=== PATIENT | female | born 1965 | race Caucasian/White ===

== ENCOUNTER → 2016-06-22 | Outpatient (CLI) | payer OTHER ==
[~2016-06-22] MED LIST: CELE200C PO; CETI10CA PO; CICL6.1H2 IH; DICY20TA30 PO; DULO60CA6 PO; FURO-69 PO; HYDR200T PO; HYDR4TAB PO; METH5TAB4 PO; ONDA4TAB7 PO; OXYM20TA10 PO; PRED-220 PO; PRED5SOL PO; VIT B COMPLEX; Vit D; XOPENEX1.25 MG/3 IH; [UNRECOGNIZED DRUG - OTHER]
--- NOTE | 2016-06-22 23:39 | PAIN ---
DATE OF SERVICE: 06/22/2016 DIAGNOSES: 1. Lumbar radiculopathy with lumbar degenerative disk disease and spondylosis. 2. Right hip joint pain. HISTORY OF PRESENT ILLNESS: The patient is a 51-year-old female who returns for followup status post previous caudal epidural steroid injections and medication management with both Opana and hydromorphone. The patient reports she is doing fairly well with these. She has not been using as much of hydromorphone in recent months. She is trying to be very sparingly with these as far as use goes, but the Opana she is taking fairly consistently every 12 hours with good results with the medications without significant side effects. The patient reports about 50% improvement with medications alone without significant side effects once again. The patient reports pain in low back and left lower extremity, increasing in intensity, dull alternating with sharp and aching pain in the low back radiating to the posterior gluteus, posterior thighs, lateral thigh, posterior lower leg into the ankle and foot with a radiating quality with significant pain with walking, standing, change in positions, has been waking her up from sleep recently not every night, but about 3 to 4 times a week, does keep her up at night with pain radiating into the leg as described. The patient reports it is 7 on a scale of 10, it is worse again worse with standing, walking, changing positions or lying down. No significant symptoms on the right side, but no significant motor loss, but the leg is becoming more weak with activity and fatigued more easily. 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 The patient reports these helped to some extent, but if not, then decreasing the pain significantly and again it is increasing with time. Her last injection was in December 2015. She did very well after this with approximately a 75% improvement, but the pain is returning now slowly and again becoming much more problematic with radiation to the left leg. PHYSICAL EXAMINATION: VITAL SIGNS: The patient's blood pressure 124/76, pulse 57, respirations 18, temperature 98.5 degrees Fahrenheit, height is 5 feet 5 inches, weight is 209 pounds. GENERAL: The patient is awake, alert, oriented, appropriate, very pleasant demeanor. HEENT: Head shows normocephalic, atraumatic. Extraocular movements are intact and symmetrical. Oral cavity shows mucous membranes moist and pink. Dentition is intact. NECK: Shows anterior throat supple without palpable lymphadenopathy noted. Swallow reflex is symmetrical. Neck shows full rotational motion of cervical spine with some minor tenderness with extension, but not with forward flexion. Right and left lateral rotation, slightly guarded, but complete past 45 degrees right and left. CHEST: Shows normal on inspection. Breath sounds are clear to auscultation bilaterally. HEART: Shows S1 and S2 clear. ABDOMEN: Soft, nontender, nondistended. No palpable organomegaly is noted. No rebound or guarding demonstrated. BACK: Shows spine grossly midline. Well-healed surgical scar is noted in the lumbar distribution. is symmetrical in appearance palpation is very firm, very tender with palpation throughout the upper, middle, lower distribution of paraspinous muscles in the lumbar distribution diffusely tender, very firm, but with normal for muscle girth without significant radiation, but significant tenderness mostly in the lower lumbar distribution. No tenderness over the sacrum or sacroiliac regions. The patient shows good rotation and motion of the lumbar spine, both laterally as well as extension and flexion with some minor pain reported with extension, but not flexion. EXTREMITIES: Lower extremities showed deep tendon reflexes 1+ in the patellar and tendo calcaneus tendons. Motor exam is approximately 3 on a scale 5 with left ankle flexion and extension and 4/5 on the right quadriceps and hamstring flexion 4/5 on the left and 5/5 on the right with quadriceps and hamstring flexion. Straight leg raise noted to be positive on the left side about 40-45 degrees with significant pain radiating rating the posterior gluteus, posterior thigh, posterior lower leg, which has decreased but not relieved with knee flexion. Right side is negative. Options were discussed with the patient. The patient's old chart was reviewed as her current medication regimen updated. Current review of systems updated today as well. We will preauthorize the patient for a caudal epidural steroid injection as she did very well with this in the past, again with returning in radicular pain in the left lower extremity and no longer be well controlled with home physical therapy and stretching, strengthening exercises. Also, refill patient's Opana 20 mg q.12 h. and patient was given instruction as well as side effects to be aware of, will follow up for a caudal epidural steroid injection as scheduled. THEODORE SORIANO MD DR: CAMPBELL/rony JOB#: [id number] / [id number]
== END | disposition home or self-care (01) ==
LOC: PNCL 10:12
PROVIDERS: ATTEND Anesthesiology
DX: M51.16 Intervertebral disc disorders with radiculopathy, lumbar region (principal); M47.896 Other spondylosis, lumbar region; M25.551 Pain in right hip
CPT/HCPCS: 99212

== ENCOUNTER → 2016-07-25 | Outpatient (CLI) | payer OTHER ==
[~2016-07-25] MED LIST changes: +IOHEXOL 180 MG/ML 10 ML VIAL. ONE; +methylPREDNISolone ACETATE 40 MG/ML VIAL. ONE; +methylPREDNISolone ACETATE 80 MG/ML VIAL. ONE
--- NOTE | 2016-07-26 01:26 | PAIN ---
DATE OF SERVICE: 07/25/2016 DIAGNOSES: 1. Lumbar radiculopathy, lumbar degenerative disk disease with lumbar spondylosis. 2. Right hip joint pain. HISTORY OF PRESENT ILLNESS: The patient is a 51-year-old female who returns for follow status post caudal epidural steroid injections and medication management with both Opana and hydromorphone for breakthrough pain. The patient reports she has been doing fairly well with this, although she does have increased pain in her low back and left lower extremity over the last few months. The patient is having increased pain with walking, standing, also some plantar fasciitis, which has been increasing and is contemplating him in surgery with her orthopedist regarding this as well. The patient reports the pain is 8 on a scale of 10, across the low back in the left lower extremity, mostly in the posterior gluteus, posterior thigh, posterior lateral calf, worse in the tail bone region, also difficulty sitting and she is using a donut to sit on recently because of the soreness and increased pain in the tail bone itself. The patient reports no new motor or sensory deficits. No new bowel or bladder incontinence or other complaints. PHYSICAL EXAMINATION: VITAL SIGNS: Blood pressure 115/66, pulse 73, respirations are 18, temperature 98.4 degrees Fahrenheit. Height is 5 feet 5 inches, weight is 212 pounds. General: The patient is awake, alert, oriented, appropriate, very pleasant demeanor. HEENT: Head shows normocephalic, atraumatic. Extraocular movements are intact and symmetrical. Oral cavity shows mucous membranes moist and pink. Dentition is intact. NECK: Shows anterior throat supple without palpable lymphadenopathy noted. Swallow reflex is symmetrical. Neck shows full rotation and motion of the cervical spine without difficulties and minor tenderness with extension, but not with forward flexion, right and left lateral rotation, greater than 45 degrees is intact without difficulty. CHEST: Shows normal on inspection. Breath sounds are clear to auscultation bilaterally. HEART: Shows S1 and S2 clear. No murmurs are auscultated. ABDOMEN: Obese, soft, nontender, nondistended. No palpable organomegaly is noted. No rebound or guarding demonstrated. BACK: Shows spine grossly midline. Inspection of the lumbar paraspinal musculature appears symmetrical without evidence of atrophy or hypertrophy with palpation, shows some moderate tenderness with palpation throughout the middle and lower distribution of the paraspinal muscles diffusely without atrophy, without hypertrophy, without trigger points or radiation of pain. No tenderness over the sacrum or sacroiliac regions. EXTREMITIES: The patient's lower extremities show deep tendon reflexes at 1+ in the patella and tendo calcaneus tendons. Motor exam remains approximately 3 to 4 on a scale of 5 with left ankle and 4/5 on the right, quadriceps and hamstring flexion 4/5 on the left and 5/5 on the right as well. PLAN: Options were discussed with the patient at this time. The patient's old chart was reviewed as her current medication regimen and updated. Current review of systems updated today as well. We will proceed with a caudal approach epidural steroid injection today with fluoroscopic guidance. Risks were again discussed including, but not limited to bleeding, infection, possibility of epidural hematoma, subsequent neurologic compromise, dural punctures, headaches, spinal cord and/or nerve damage, side effects of steroid medication and poor results regarding pain control. The patient understands and wishes to proceed. The patient will return to clinic in approximately 2 weeks for followup, was counseled as to return appointment and activity level and side effects to be aware of. DIAGNOSES: Lumbar radiculopathy with lumbar degenerative disk disease with lumbar spondylosis. PROCEDURE: Caudal approach epidural steroid injection using C-arm fluoroscopic guidance under sterile prep and drape with 22-gauge stylet Quincke needle. MEDICATIONS INJECTED: Depo-Medrol 120 mg plus 10 mL of preservative-free normal saline and 2 mL of Isovue contrast. CONDITION AT DISCHARGE: Stable. The patient tolerated procedure well, had no complications. THEODORE SORIANO MD DR: CAMPBELL/rony JOB#: [id number] / [id number]
== END | disposition home or self-care (01) ==
LOC: PNCL 10:33
PROVIDERS: ATTEND Anesthesiology
DX: M51.16 Intervertebral disc disorders with radiculopathy, lumbar region (principal); M47.26 Other spondylosis with radiculopathy, lumbar region
CPT/HCPCS: 62323; J1030; J1040

== ENCOUNTER → 2016-11-03 | Outpatient (CLI) | payer OTHER ==
[~2016-11-03] MED LIST changes: -IOHEXOL 180 MG/ML 10 ML VIAL. ONE; -OXYM20TA10 PO; +OXYM20TA17 PO; -methylPREDNISolone ACETATE 40 MG/ML VIAL. ONE; -methylPREDNISolone ACETATE 80 MG/ML VIAL. ONE
--- NOTE | 2016-11-04 05:27 | PAIN ---
DATE OF SERVICE: 11/03/2016 DIAGNOSES: 1. Lumbar radiculopathy with lumbar degenerative disk disease and lumbar spondylosis. 2. Right hip joint pain. HISTORY OF PRESENT ILLNESS: A 51-year-old female who returns for followup status post medication management with both Opana extended release and hydromorphone. The patient has done very well with this, about 50% improvement overall. The patient reports recent foot surgery with very good results. She has been able to walk much more comfortably and quite pleased with this. She is also having some significant pain, however, in the low back and left leg in a radicular fashion, which she has previously, rates it 9 on a scale of 10 at its worst, currently 2 on a scale 10 today, worst with standing and walking. She has a new physician with her physical therapy group where she is able to do more supervision without more physical activity, which has been more ____ as well with decreasing her pain. The patient reports there is still some aching, sharp, dull pain, shooting, cramping, tingling and stabbing. It can be constant, radiating mostly with weightbearing, standing and walking. The patient reports no new motor or sensory deficits. The patient reports she is only sleeping a few hours a night at this time. She has to reposition and change positions, get out of bed, take pain medication during the night to get any restful sleep. The patient reports no new motor or sensory deficits, no new bowel or bladder incontinence or other complaints. PHYSICAL EXAMINATION: VITAL SIGNS: The patient's blood pressure is 145/77, pulse 76, respirations are 18, temperature 98.2 degrees Fahrenheit, height is 5 feet 5 inches, weight is 221 pounds. GENERAL: The patient is awake, alert, oriented, appropriate, very pleasant demeanor. HEENT: Head shows normocephalic, atraumatic. Extraocular movements are intact, symmetrical. Oral cavity, mucous membranes are moist and pink. Dentition is intact. NECK: Shows anterior throat supple without palpable lymphadenopathy noted. Swallow reflex is symmetrical. CHEST: Shows normal on inspection. Breath sounds clear to auscultation bilaterally. HEART: Shows S1 and S2 clear. ABDOMEN: Soft, obese, nontender, nondistended. No palpable organomegaly is noted. BACK: Shows spine grossly midline. Lumbar paraspinous muscle shows some mild tenderness with palpation diffusely bilaterally in the middle and lower distribution of paraspinous muscles, but without radiation. The patient has good rotational motion both laterally as well as extension and flexion without difficulty. EXTREMITIES: The patient's lower extremities showed deep tendon reflexes 1+ in the patellar and tendo calcaneus tendons. Motor exam is approximately 4 on a scale of 5 with left dorsiflexion, extension and 5/5 on the right. Options were discussed with the patient. We will refill the patient's Opana extended release as well as hydromorphone with instructions side effects to be aware of discussed with each of these, also discussed increased activity as tolerated and nutritional diet concerns for weight loss. The patient will return to clinic in approximately 2-3 weeks, will call to schedule for her second caudal epidural steroid injection. We will plan on that on her next visit. THEODORE SORIANO MD DR: CAMPBELL/rony JOB#: [id number] / [id number]
== END | disposition home or self-care (01) ==
LOC: PNCL 14:14
PROVIDERS: ATTEND Anesthesiology
DX: M51.16 Intervertebral disc disorders with radiculopathy, lumbar region (principal); M47.896 Other spondylosis, lumbar region; M25.551 Pain in right hip
CPT/HCPCS: 99212

== ENCOUNTER → 2016-12-08 | Outpatient (CLI) | payer OTHER ==
[~2016-12-08] MED LIST changes: +IOHEXOL 180 MG/ML 10 ML VIAL. ONE; +METO25TA4 PO; +methylPREDNISolone ACETATE 40 MG/ML VIAL. ONE; +methylPREDNISolone ACETATE 80 MG/ML VIAL. ONE
== END | disposition home or self-care (01) ==
LOC: PNCL 08:58
PROVIDERS: ATTEND Anesthesiology
DX: M51.16 Intervertebral disc disorders with radiculopathy, lumbar region (principal); M47.26 Other spondylosis with radiculopathy, lumbar region; Z88.1 Allergy status to other antibiotic agents; Z88.8 Allergy status to other drugs, medicaments and biological substances
CPT/HCPCS: 62323; J1030; J1040

== ENCOUNTER → 2017-01-02 | Outpatient (CLI) | payer OTHER ==
[~2017-01-02] MED LIST changes: -IOHEXOL 180 MG/ML 10 ML VIAL. ONE; -methylPREDNISolone ACETATE 40 MG/ML VIAL. ONE; -methylPREDNISolone ACETATE 80 MG/ML VIAL. ONE
--- NOTE | 2017-01-02 23:38 | PAIN ---
DATE OF SERVICE: 01/02/2017 PROGRESS NOTE FOR PAIN CLINIC DIAGNOSES: Lumbar radiculopathy with lumbar degenerative disk disease and lumbar spondylosis. HISTORY OF PRESENT ILLNESS: The patient is a 51-year-old female who returns for followup status post caudal epidural steroid injection x 1. The patient reports about 50-60% improvement after the last injection in the low back and left lower extremity pain. The patient reports the pain is returning now. 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 She is doing fairly well with this. The patient reports sporadically she will awaken from sleep at night and she repositions. She takes her pain medication and gets out of the bed and then changes positions. She is able to get back to sleep. She is getting about 4 to 5 hours of sleep at a time most times. The patient reports that she has been doing much better. Her last injection was 10/08/2014. For the past 2 weeks there has been about 50-60% improvement starting to build up now again with radiation into the left lower extremity in L4-L5 and L5-S1 dermatome, in the anterior thigh, medial thigh, lower thigh posteriorly as well as the posterior upper thigh and posterior calf on the left side only. The patient also reports of pain in the mid upper back with increased activity as well. The patient rates it as a 10 on a scale of 10 at its worse, currently is 7 on a scale of 10 today. She describes it as aching, dull, tight, shooting, tingling with burning and sometimes constant pain in the back and radiating pain into the left leg is noted. PHYSICAL EXAMINATION: VITAL SIGNS: Today, the patient's blood pressure 114/74, pulse 81, respirations are 20, temperature is 98.6 degrees Fahrenheit, height is 5 feet 5 inches, weighs 216 pounds. GENERAL: The patient is awake, alert, oriented, appropriate, very pleasant demeanor. HEENT: Head shows normocephalic, atraumatic. Extraocular movements are intact and symmetrical. Oral cavity: Mucous membranes moist and pink. Dentition is intact. NECK: Shows anterior throat supple without palpable lymphadenopathy noted. Swallow reflex is symmetrical. CHEST: Shows normal on inspection. Breath sounds clear to auscultation bilaterally. HEART: Shows S1 and S2 clear. ABDOMEN: Soft, nontender, nondistended. No palpable organomegaly, no rebound or guarding demonstrated. BACK: Shows spine grossly midline. Normal-appearing cervical lordotic curvature, thoracic kyphotic curvature, some mild flattening of lumbar lordotic curvature. Lumbar paraspinous muscle shows symmetrical inspection, shows palpation tenderness throughout the upper, middle and lower distribution of paraspinous musculature diffusely. The patient shows good rotational motion; however, both laterally as well as extension and flexion of lumbar spine without difficulty. LOWER EXTREMITIES: Showed deep tendon reflexes at 1+ in the patellar and tendocalcaneus tendons are equal. Motor exam is approximately 4 on a scale of 5 with dorsiflexion, extension, quadriceps and hamstring flexion, but is symmetrical and equal. Peripheral pulses are 1+ in the bilateral posterior tibial and dorsalis pedis pulses. No peripheral edema is noted in the lower extremities. The patient shows positive straight leg raise on the left only about 40-45 degrees, decreased with knee flexion and completely relieved with knee flexion, right side is negative. Gaenslen's and Juan Luis's maneuvers are negative bilaterally. Options were discussed with the patient and the patient's old chart was reviewed as her current medication regimen updated. Current review of systems updated today as well. We will prescribe Opana at 20 mg extended release. We did discuss the possibility of this being discontinued in the near future and we will find at alternative at that time. The patient is amenable to this as well. We will have the patient prearthritis for a second caudal approach epidural steroid injections. She did very well with the first one with now some pain reported in a radicular fashion in the left leg at the L4-L5 and L5-S1 dermatomes as noted. The patient will continue to increase her activity as tolerated, was counseled as to the importance of maintaining activity and she will follow up for a second caudal epidural steroid injection as scheduled and she was given instructions as well as side effects to be aware with the Opana medication prescription. THEODORE SORIANO MD DR: CAMPBELL/rony JOB#: [id number] / [id number]
== END | disposition home or self-care (01) ==
LOC: PNCL 13:28
PROVIDERS: ATTEND Anesthesiology
DX: M54.16 Radiculopathy, lumbar region (principal); M51.36 Other intervertebral disc degeneration, lumbar region; M47.896 Other spondylosis, lumbar region
CPT/HCPCS: 99212

== ENCOUNTER → 2017-01-17 | Outpatient (CLI) | payer OTHER ==
[~2017-01-17] MED LIST changes: +IOHEXOL 180 MG/ML 10 ML VIAL. ONE; +methylPREDNISolone ACETATE 40 MG/ML VIAL. ONE; +methylPREDNISolone ACETATE 80 MG/ML VIAL. ONE
--- NOTE | 2017-01-17 16:45 | PAIN ---
DATE OF SERVICE: 01/17/2017 PROGRESS NOTE FOR PAIN CLINIC DIAGNOSIS: Lumbar radiculopathy with lumbar degenerative disk disease and lumbar spondylosis. HISTORY OF PRESENT ILLNESS: The patient is a 52-year-old female who returns for followup status post previous caudal epidural steroid injections as well as medication management. The patient had been doing fairly well, but the pain is returning and increasing in the low back and into the left lower extremity primarily, also in the right lower extremity but also in the low back, significant pain with motion and changing positions, walking and standing, awakens her from sleep occasionally but not every night. The patient reports the pain as a 9 on a scale of 10 at its worst and 1 at its least. It is currently a 5 on a scale of 10, which is its average. The patient reports the pain in the low back and leg as aching, dull, tingling, burning, cramping, severe, constant and radiating, and it is flared up today as she has been doing some increased activity over the weekend, and we had some rainy weather last night, which has flared it up as well. The patient reports no new motor or sensory deficits, no new bowel or bladder incontinence or other complaints. PHYSICAL EXAMINATION: VITAL SIGNS: Today, the patient's blood pressure 112/71, pulse 68, respirations 18, temperature is 98.2 degrees Fahrenheit. Height is 5 feet 5 inches. Weight is 218 pounds. GENERAL: The patient is awake, alert, oriented, appropriate, very pleasant demeanor. HEENT: Head shows normocephalic and atraumatic. Extraocular movements are intact and symmetrical. Oral cavity: Mucous membranes are moist and pink. Dentition is intact. NECK: Shows anterior throat supple without palpable lymphadenopathy noted. Swallow reflex is symmetrical. CHEST: Shows normal on inspection. Breath sounds are clear to auscultation bilaterally. HEART: Shows S1 and S2 clear. ABDOMEN: Soft, nontender, nondistended. No rebound or guarding demonstrated. BACK: Shows spine grossly midline. Slight exaggeration of thoracic kyphosis and mild flattening of lumbar lordotic curvature. Lumbar paraspinous muscle shows some moderate tenderness with palpation diffusely throughout the upper, middle and lower distribution to a moderate extent but without significant radiation. No tenderness over the sacrum or sacroiliac regions. Lower extremities show deep tendon reflexes 1+ in the patellar and tendo calcaneus tendons. Motor exam is approximately 4 on a scale of 5 but equal and symmetrical with dorsiflexion, extension, quadriceps and hamstring flexion. Options were discussed with the patient. The patient's old chart was reviewed, and her current medication regimen was updated. Current review of systems was updated today as well. We will proceed with a caudal epidural steroid injection #2 in this series. Risks were again discussed including but not limited to bleeding, infection, possibility of epidural hematoma, subsequent neurological compromise, dural puncture, headaches, spinal cord and/or nerve damage, side effects of steroid medication and poor results regarding pain control. The patient understands and wishes to proceed. The patient will return to clinic in approximately 2 weeks for followup and was counseled on return appointment, activity level and side effects to be aware of. DIAGNOSIS: Lumbar radiculopathy with lumbar degenerative disk disease and lumbar spondylosis. PROCEDURE: Caudal approach epidural steroid injection using C-arm fluoroscopic guidance under sterile prep and drape using local anesthetic. MEDICATIONS INJECTED: Total of 120 mg of Depo-Medrol plus 10 mL of preservative-free normal saline and 2 mL of Isovue for contrast. CONDITION AT DISCHARGE: Stable. The patient tolerated the procedure well and had no complications. THEODORE SORIANO MD DR: CAMPBELL/rony JOB#: [id number] / [id number]
== END | disposition home or self-care (01) ==
LOC: PNCL 10:22
PROVIDERS: ATTEND Anesthesiology
DX: M51.16 Intervertebral disc disorders with radiculopathy, lumbar region (principal); M47.26 Other spondylosis with radiculopathy, lumbar region; Z88.8 Allergy status to other drugs, medicaments and biological substances
CPT/HCPCS: 62323; J1030; J1040

== ENCOUNTER → 2017-01-31 | Outpatient (CLI) | payer OTHER ==
[~2017-01-31] MED LIST changes: -IOHEXOL 180 MG/ML 10 ML VIAL. ONE; -methylPREDNISolone ACETATE 40 MG/ML VIAL. ONE; -methylPREDNISolone ACETATE 80 MG/ML VIAL. ONE
--- NOTE | 2017-01-31 12:46 | PAIN ---
DATE OF SERVICE: 01/31/2017 DIAGNOSES: 1. Lumbar radiculopathy with lumbar degenerative disk disease, lumbar spondylosis. 2. Right hip joint pain. HISTORY OF PRESENT ILLNESS: Ms. Wiseman is a 52-year-old female who returns for followup, status post caudal epidural steroid injection on 01/17/2017. The patient reports she has done very well for the past 2 weeks, initially about 100% improvement in the low back and left lower extremity pain. The pain is beginning to return now, but only to about a 75% to 80% of what it was originally. The patient reports still 75% to 80% improvement that is in the left lower leg and back. The patient reports, it is a 6 on a scale of 10 on an average. It is at 2 on a scale of 10 today, and 9 at its worst. Aching, sharp, shooting, cramping, tingling. Radiating into the left leg, low back; becoming more severe, on and off in intensity, but not constant like it was. The patient reports it is increased with walking. She blames this on the way her foot is used when she walks, and she had several surgeries on her foot, on the left side. The patient reports it is doing better at night. Does not awaken her as often, but has awaken her maybe twice since her last visit, when it was every night. The patient reports it is still radiating in the L5-S1 and L4-L5 distribution in the left lower extremity. The patient reports no new motor or sensory deficits, no new bowel or bladder incontinence or other complaints. She is very pleased with her progress again, significantly improved, 100% initially and then about 75% to 80% over the past 2 weeks and still doing better. The patient reports it is beginning to become more noticeable as time goes on, but has been very good for the last 2 weeks as well. PHYSICAL EXAMINATION: VITAL SIGNS: Today, blood pressure 122/77, pulse 72, respirations are 18, temperature 98.6 degrees Fahrenheit, height is 5 feet 5 inches, weighs 221 pounds. GENERAL: The patient is awake, alert, oriented, appropriate, very pleasant demeanor. HEENT: Head shows normocephalic, atraumatic. Extraocular movements are intact and symmetrical. Oral mucosa is moist and pink. Dentition intact. NECK: Shows anterior throat supple. CHEST: Shows normal on inspection. Breath sounds clear to auscultation bilaterally. HEART: Shows S1 and S2 clear. No murmurs auscultated. ABDOMEN: Obese, soft, nontender, nondistended. MUSCULOSKELETAL: Back shows spine grossly in the midline. Normal appearing thoracic kyphosis. Some slight flattening of lumbar lordotic curvature. Lumbar paraspinous musculature shows symmetrical on inspection. Palpation shows some moderate tenderness, only diffusely in the lower lumbar distribution, bilaterally without radiation. No tenderness over the sacrum or sacroiliac regions. The patient shows good rotational motion of the lumbar spine, both laterally as well as extension and flexion. EXTREMITIES: Lower extremities showed deep tendon reflexes 1+ in the patellar and tendo calcaneus tendons. Motor exam is approximately 4 on a scale of 5, but equal and symmetrical with dorsiflexion, extension, quadriceps and hamstring flexion. Peripheral pulses are 1+ posterior tibial bilaterally. No peripheral edema is noted. The patient still has a very mild straight leg raise, positive on the left at about 45 degrees which is relieved with knee flexion. Right side is negative. The patient is able to stand. It is difficult to turn and stand on her toes, as she has difficulty with her feet, moving in this configuration. Is walking with a slight limp. Appears to favor her left lower extremity. Not using any assistive devices currently to ambulate. IMPRESSION: Options were discussed with the patient. The patient's old chart was reviewed, as her current medication regimen updated. Current review of systems updated today as well. We will preauthorize the patient for a second caudal approach epidural steroid injection. The patient will return to clinic once authorization is approved and we will plan on caudal epidural steroid injection at that time. THEOODRE SORIANO MD DR: CAMPBELL/rony JOB#: [id number] / [id number]
== END | disposition home or self-care (01) ==
LOC: PNCL 10:24
PROVIDERS: ATTEND Anesthesiology
DX: M51.16 Intervertebral disc disorders with radiculopathy, lumbar region (principal); M47.896 Other spondylosis, lumbar region; M25.551 Pain in right hip
CPT/HCPCS: 99212

== ENCOUNTER → 2017-03-24 | Outpatient (CLI) | payer OTHER ==
--- NOTE | 2017-03-24 12:55 | PAIN ---
DATE OF SERVICE: 03/24/2017 DIAGNOSES: 1. Lumbar radiculopathy with lumbar degenerative disk disease, lumbar spondylosis. 2. Right hip joint pain. HISTORY OF PRESENT ILLNESS: The patient is a 52-year-old female who returns for followup status post both caudal epidural steroid injections as well as medication management with Opana and hydrocodone for breakthrough. The patient reports doing well with this; however, Opana has been taken off the market, and we discussed some alternatives. We will try some different alternatives today. The patient reports still pain is significant in the low back, left lower extremity with significant radiation, mostly in the right lower extremity, much worse with walking upstairs, climbing stairs, also just standard walking and changing positions. The patient reports no new motor or sensory deficits, no new bowel or bladder incontinence or other complaints, but the pain is beginning to be much worse and some weakness in the lower extremities as well. The patient reports as a 9 on a scale of 10 at its worse, a 7 on average and a 6 at its least and a 6 today. The patient reports tingling, stabbing, aching, shooting, radiating constant pain in the leg and it is becoming more severe and unbearable in the left leg. The patient reports no complete loss of function, but significant weakness and fatigability in the legs with ambulation. The patient reports she has been waking from sleep about every 3-4 hours secondary to pain in low back and left leg. She has to get out of bed, take pain medications and reposition to get back to sleep. The patient reports no new motor or sensory deficits, but again significant increase in weakness in the lower extremities, especially on the left side and in the back with pain. PHYSICAL EXAMINATION: VITAL SIGNS: The patient's blood pressure is 131/81, pulse is 111, respirations 18, temperature 98.1 degrees Fahrenheit. Height is 5 feet 5 inches, weight is 216 pounds. GENERAL: The patient is awake, alert, oriented, appropriate, very pleasant demeanor. HEENT: Shows normocephalic, atraumatic. Extraocular movements are intact and symmetrical. Oral cavity shows mucous membranes moist and pink. Dentition is intact. NECK: Shows anterior throat supple without palpable lymphadenopathy noted. Swallow reflex is symmetrical. CHEST: Shows normal on inspection. Breath sounds are clear to auscultation bilaterally. HEART: Shows S1 and S2 clear. No murmurs auscultated. ABDOMEN: Soft, nontender, nondistended. No palpable organomegaly. No rebound or guarding demonstrated. BACK: The patient's back shows spine grossly in midline with a slight exaggeration of thoracic kyphosis and mild flattening of lumbar lordotic curvature. Lumbar paraspinous muscle shows symmetrical on inspection, but with palpation shows some moderate tenderness bilaterally diffusely without radiation. The patient shows good rotational motion with some minor tenderness with extension, but not with forward flexion. Right and left lateral rotations performed at 10 degrees from midline right and left without significant pain reported. No tenderness over the sacrum or sacroiliac regions or over the spinous processes. LOWER EXTREMITIES: Showed deep tendon reflexes 1+ in the patellar and tendo calcaneus tendons. Motor exam is approximately 4 on a scale of 5, but equal and symmetrical with dorsiflexion, extension, quadriceps and hamstring flexion. Peripheral pulses are 1+ posterior tibial. No peripheral edema is noted. Options were discussed with the patient and the patient's old chart was reviewed as her current medication regimen updated. Current review of systems updated today as well, and we will refill the patient's hydrocodone, but change the Opana as it is no longer available to new extended release oxycodone. Xtampza at 18 mg q.12 hours to be taken with food. The patient was given instruction as well as side effects to be aware with the medications and will follow up in the next week or two once this has been tried and for some feedback on how it is doing with the pain. The patient was cautioned as to side effects as well as constipation, dizziness, drowsiness, sleepiness, nausea, itching, etc. The patient understands and agrees and will follow up as scheduled. THEODORE SORIANO MD DR: CAMPBELL/rony JOB#: [id number] / [id number]
== END | disposition home or self-care (01) ==
LOC: PNCL 09:16
PROVIDERS: ATTEND Anesthesiology
DX: M51.16 Intervertebral disc disorders with radiculopathy, lumbar region (principal); M47.896 Other spondylosis, lumbar region; M25.551 Pain in right hip
CPT/HCPCS: 99212

== ENCOUNTER → 2017-04-19 | Outpatient (CLI) | payer OTHER ==
--- NOTE | 2017-04-19 17:03 | KCIC ---
MRI Lumbar Spine without contrast History: Lumbar radiculopathy, left radiculopathy, new right leg weakness Technique: Multiplanar, multi sequential noncontrast MR imaging was performed of the lumbar spine. Contrast: None Comparison: None Findings: Lumbar vertebral body stature is overall maintained. There is small inferior L3 Schmorl's node. There is advanced degenerative disc disease at L5-S1, moderate degenerative disc disease at L4-5, minimally at L3-4 and L2-3. There is degenerative endplate change L5-S1. There is minimal posterior subluxation L5 relative S1 and L4 relative to L5, negligible posterior subluxation L3 relative L4. There is straightening of the lumbar spine. Conus terminates at L1. L2-L3: This level was not included on the axial images. There is shallow posterior protrusion in the left lateral recess. Spinal canal and neural foramina are adequate. L3-L4: There is disc osteophyte complex. There is superimposed bulge as well as protrusion more eccentric to the right lateral recess. There is mild narrowing of the far right lateral recess. There is mild buckling of the ligamentum flavum. There is prominence of posterior epidural fat and mild facet degenerative change. Neural foramina are overall adequate. L4-L5: There is mild buckling of the ligamentum flavum. There is disc osteophyte complex, superimposed bulge/broad protrusion with indentation upon the ventral thecal sac greater in the left lateral recess. There is [id number] narrowing of the far left lateral recess with contact of the descending left L5 nerve root, minimal narrowing of the far right lateral recess. There is minimal narrowing of the left neural foramen, right neural foramen overall adequate. L5-S1: There is broad posterior protrusion, small extrusion extending above the intervertebral disc space eccentric to the left lateral recess. There is contact of the descending S1 nerve roots bilaterally greater on the left. There is moderate to severe left and mild right lateral recess stenosis. There is moderate to severe left and moderate right neural foramina compromise. Impression: 1. There is lateral recess stenosis as stated most notable left greater than right at L5-S1 and on the left at L4-5. There is contact of the descending S1 nerve roots at L5-S1 greater on the left. 2. There is degenerative disc disease at L5-S1 and to lesser degree L4-5, minimally at more superior levels. 3. There is neural foramina compromise as stated most notable bilaterally at L5-S1, left greater than right. 4. There is multilevel mild abnormal alignment as stated, multilevel facet degenerative change. Electronically signed by: Efraín Hines MD (04/19/2017 4:59 PM) [id number]
== END | disposition home or self-care (01) ==
LOC: KCIC MRI 16:22
PROVIDERS: ATTEND Anesthesiology
DX: M51.16 Intervertebral disc disorders with radiculopathy, lumbar region (principal); M47.896 Other spondylosis, lumbar region; Z88.2 Allergy status to sulfonamides; Z88.8 Allergy status to other drugs, medicaments and biological substances; Z91.041 Radiographic dye allergy status; Z88.5 Allergy status to narcotic agent
CPT/HCPCS: 72148

== ENCOUNTER → 2017-05-26 | Outpatient (CLI) | payer OTHER | END | disposition home or self-care (01) | LOC: KCIC MRI 08:32 | DX: M48.02 Spinal stenosis, cervical region (principal); M47.892 Other spondylosis, cervical region; M25.78 Osteophyte, vertebrae; R53.1 Weakness | CPT/HCPCS: 72141 ==

== ENCOUNTER → 2017-07-20 | Outpatient (CLI) | payer OTHER | END | disposition home or self-care (01) | LOC: PNCL 10:55 | DX: M51.16 Intervertebral disc disorders with radiculopathy, lumbar region (principal); M16.11 Unilateral primary osteoarthritis, right hip; M47.896 Other spondylosis, lumbar region | CPT/HCPCS: 99212 ==

== ENCOUNTER → 2017-08-03 | Outpatient (CLI) | payer OTHER | END | disposition home or self-care (01) | LOC: PNCL 10:48 | DX: M51.16 Intervertebral disc disorders with radiculopathy, lumbar region (principal); M47.896 Other spondylosis, lumbar region; M25.551 Pain in right hip; M79.672 Pain in left foot | CPT/HCPCS: 99212 ==

== ENCOUNTER → 2017-10-02 | Outpatient (CLI) | payer OTHER ==
[~2017-10-02] MED LIST changes: -CELE200C PO; -CETI10CA PO; -CICL6.1H2 IH; -DICY20TA30 PO; -DULO60CA6 PO; -FURO-69 PO; -HYDR200T PO; -HYDR4TAB PO; +IOHEXOL 180 MG/ML 10 ML VIAL.; -METH5TAB4 PO; -METO25TA4 PO; -ONDA4TAB7 PO; -OXYM20TA17 PO; -PRED-220 PO; -PRED5SOL PO; -VIT B COMPLEX; -Vit D; -XOPENEX1.25 MG/3 IH; -[UNRECOGNIZED DRUG - OTHER]; +methylPREDNISolone ACETATE 40 MG/ML VIAL.; +methylPREDNISolone ACETATE 80 MG/ML VIAL.
== END | disposition home or self-care (01) ==
LOC: PNCL 13:08
DX: M51.16 Intervertebral disc disorders with radiculopathy, lumbar region (principal); M47.26 Other spondylosis with radiculopathy, lumbar region; Z91.041 Radiographic dye allergy status; Z88.5 Allergy status to narcotic agent; Z88.8 Allergy status to other drugs, medicaments and biological substances
CPT/HCPCS: 62323; J1030; J1040; Q9965

== ENCOUNTER → 2017-12-22 | Outpatient (CLI) | payer OTHER | END | disposition home or self-care (01) | LOC: PNCL 10:33 | DX: M51.16 Intervertebral disc disorders with radiculopathy, lumbar region (principal); M47.896 Other spondylosis, lumbar region | CPT/HCPCS: 99212 ==

== ENCOUNTER → 2018-02-07 | Outpatient (CLI) | payer OTHER ==
[~2018-02-07] MED LIST changes: +ABAL1.56 SQ; +CELE200C PO; +CETI10CA PO; +CICL6.1H2 IH; +DICY20TA30 PO; +DULO60CA6 PO; +FLUT1DIS3 IH; +FURO-69 PO; +HYDR200T71 PO; +HYDR4TAB PO; -IOHEXOL 180 MG/ML 10 ML VIAL.; +METH5TAB4 PO; +METO25TA4 PO; +ONDA4TAB7 PO; +OXYC18CA PO; +OXYM20TA17 PO; +PRED-220 PO; +PRED5SOL PO; +VIT B COMPLEX; +Vit D; +XOPENEX1.25 MG/3 IH; +[UNRECOGNIZED DRUG - OTHER]; -methylPREDNISolone ACETATE 40 MG/ML VIAL.; -methylPREDNISolone ACETATE 80 MG/ML VIAL.
--- NOTE | 2018-02-07 18:25 | PAIN ---
DATE OF SERVICE: 02/07/2018 PROGRESS NOTE FOR PAIN CLINIC DIAGNOSES: 1. Lumbar radiculopathy with lumbar degenerative disk disease and lumbar spondylosis. 2. Right hip joint pain with primary osteoarthritis. HISTORY OF PRESENT ILLNESS: The patient is a 53-year-old female who returns for followup status post medication management postop with morphine sulfate extended release. The patient reports she is doing very well with the 30 mg tablets twice a day, also taking gabapentin 100 mg with higher dose we had suggested to take at night and it is causing some vivid nightmares. We backed this off to just 100 mg in the morning and the evening. She will try 200 mg in the morning starting after today's visit if she can tolerate the potential sedation side effects. The patient reports otherwise doing fairly well. Pain is returning, however in the low back into the left greater than right lower extremity, also in the posterior gluteus, posterior thigh, posterior calf on the left side and also in the posterior gluteus and thigh on the right. The patient reports it is worse with standing, walking and changing positions, extended standing or walking more than about 10-15 minutes, also sitting in the car for more than about 15-20 minutes. The patient reports it is aching, sharp, shooting, tingling, burning, cramping, stabbing, radiating, becoming more severe. Rates as a 7 on a scale of 10 at its worst, 5 on average, 3 at its least and is a 5 today. The patient reports no loss of motor function and does not awaken her from sleep at night generally. The patient reports no new bowel or bladder incontinence or other complaints. PHYSICAL EXAMINATION: VITAL SIGNS: The patient's blood pressure is 114/62, pulse 53, respirations are 18, temperature is 98.6 degrees Fahrenheit. Height is 5 feet 5 inches, weighs 210 pounds. GENERAL: The patient is awake, alert, oriented, appropriate, very pleasant demeanor. HEENT: Head shows normocephalic, atraumatic. Extraocular movements are intact and symmetrical. Oral cavity: Mucous membranes are moist and pink. Dentition is intact. NECK: Shows anterior throat supple, without palpable lymphadenopathy noted. Swallow reflex is symmetrical. CHEST: Shows normal on inspection. Breath sounds are clear to auscultation bilaterally. HEART: Shows S1, S2 clear. No murmurs auscultated. ABDOMEN: Soft, nontender, nondistended. No palpable organomegaly is noted. No rebound or guarding demonstrated. BACK: Shows spine grossly in the midline. Slight exaggerated thoracic kyphosis and some minor flattening of lumbar lordotic curvature. Lumbar paraspinous muscle shows symmetrical on inspection, on palpation shows some moderate tenderness throughout the upper, middle and lower distribution of the paraspinous muscles, slightly more on the left than the right, but symmetrical. The patient has good rotational motion of lumbar spine without difficulty, left and right as well as extension and flexion without significant pain. EXTREMITIES: Lower extremities shows deep tendon reflexes at 1+ in the patellar and tendo-calcaneus tendons. Motor exam is approximately 4 on a scale of 5, but equal and symmetrical with dorsiflexion, extension, quadriceps and hamstring flexion. The patient does have a positive straight leg raise on the left side at about 40-45 degrees. Right side is negative. Gaenslen's and Juan Luis's maneuvers are negative bilaterally. Peripheral pulses are 1+ posterior tibia. No peripheral edema is noted. Options were discussed with the patient. The patient's old chart was reviewed as her current medication regimen updated. Current review of systems updated today as well. We will preauthorize the patient for a caudal approach epidural steroid injection. She has done very well with these in the past, but returning radicular pain in an L5-S1 dermatomal distribution, more on the left than the right. The patient was given a refill for her MS Contin as well as Symproic with instructions and side effects to be aware of with each of the medications. The patient will follow up in approximately 2 weeks. We will plan on caudal approach epidural steroid injection at that time. 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 THEODORE SORIANO MD DR: CAMPBELL/rony JOB#: [id number] / [id number]
== END | disposition home or self-care (01) ==
LOC: PNCL 10:05
PROVIDERS: ATTEND Anesthesiology
DX: M51.16 Intervertebral disc disorders with radiculopathy, lumbar region (principal); M47.896 Other spondylosis, lumbar region; M16.11 Unilateral primary osteoarthritis, right hip; Z88.2 Allergy status to sulfonamides; Z88.1 Allergy status to other antibiotic agents; Z88.5 Allergy status to narcotic agent; Z88.8 Allergy status to other drugs, medicaments and biological substances
CPT/HCPCS: 99212

== ENCOUNTER → 2018-02-21 | Outpatient (CLI) | payer OTHER ==
[~2018-02-21] MED LIST changes: +IOHEXOL 180 MG/ML 10 ML VIAL. ONE; +LIDOCAINE 2% PF 2ML VIAL. ONE; +MORP30TA83 PO; +NALD0.2T PO; +methylPREDNISolone ACETATE 40 MG/ML VIAL. ONE; +methylPREDNISolone ACETATE 80 MG/ML VIAL. ONE
--- NOTE | 2018-02-21 19:14 | PAIN ---
DATE OF SERVICE: 02/21/2018 DIAGNOSES: Lumbar radiculopathy with lumbar degenerative disk disease and lumbar spondylosis. HISTORY OF PRESENT ILLNESS: The patient is a 53-year-old female who returns for followup status post caudal epidural steroid injection x 1 on 10/02/2017. The patient did very well, about 50% improvement, was doing quite well. She is also managed on the MS Contin and hydrocodone for breakthrough. The patient reports she is doing well with this and think she is on some Prozac, which is working very well for constipation. The patient reports her pain now is an 8 on a scale of 10 at its worst, 5 on average, 2 at its least and is a 5 today. The patient reports it is in the low back, left lower extremity, mostly in the posterior gluteus, posterior thigh and posterior calf, aching, sharp, dull, tingling, burning, cramping, radiating, becoming more severe with time. The patient reports it is waking her from sleep occasionally, but usually only about every 6-7 hours at night, does not cause any difficulty with bowel or bladder incontinence. The patient reports initially, she increased her distance walking, doing household activities with greater ease and comfort, traveling with greater ease and comfort, still using a hemorrhoid cushion to sit on in a car, which does decrease the pain in the tailbone and the low back. The patient reports no new motor or sensory deficits, no new bowel or bladder incontinence or other complaints. PHYSICAL EXAMINATION: VITAL SIGNS: The patient's blood pressure 130/50, pulse 59, respirations 16, temperature is 98.1 degrees Fahrenheit, weight is 219 pounds. GENERAL: The patient is awake, alert, oriented, appropriate, very pleasant demeanor. HEENT: Head shows normocephalic, atraumatic. Extraocular movements are intact, symmetrical. Oral cavity: Mucous membranes moist and pink. Dentition is intact. NECK: Shows anterior throat supple without palpable lymphadenopathy noted. Swallow reflex is symmetrical. CHEST: Shows normal with inspection. Breath sounds clear to auscultation bilaterally. HEART: Shows S1, S2 clear. No murmurs auscultated. ABDOMEN: Soft, nontender, nondistended. No palpable organomegaly is noted. No rebound or guarding demonstrated. BACK: Shows spine grossly in the midline. Normal appearing thoracic kyphosis. Some slight flattening of lumbar lordotic curvature. Lumbar paraspinous musculature shows symmetrical on inspection with palpation shows some moderate tenderness, but only diffusely in the low lumbar distribution bilaterally without radiation. EXTREMITIES: The patient's lower extremities show deep tendon reflexes 1+ in the patellar and tendo calcaneus tendons. Motor exam is approximately 4 on a scale of 5 and equal and symmetrical dorsiflexion and extension, quadriceps and hamstring flexion. Peripheral pulses are 1+ posterior tibial. No peripheral edema is noted bilaterally. Options were discussed with the patient. The patient's old chart was reviewed as her current medication regimen and updated. Current review of systems is updated today as well. We will proceed with a second in the series of caudal epidural steroid injection today with fluoroscopic guidance. Risks were discussed including but not limited to bleeding, infection, possibility of epidural hematoma and subsequent neurological compromise, dural puncture, headaches, spinal cord and/or nerve damage, side effects of steroid medication and poor results regarding pain control. The patient understands and wished to proceed. The patient will return to clinic in approximately 2 weeks for followup, was counseled on return appointment, activity level and side effects to be aware of. DIAGNOSIS: Lumbar radiculopathy with lumbar degenerative disk disease, lumbar spondylosis. PROCEDURES: Lumbar epidural steroid injection, caudal approach with C-arm fluoroscopic guidance under sterile prep and drape using local anesthetic. MEDICATION INJECTED: A total of 120 mg Depo-Medrol plus 10 mL of preservative-free normal saline and 2 mL of Isovue for contrast. CONDITION AT DISCHARGE: Stable. The patient tolerated procedure well, had no complications. THEODORE SORIANO MD DR: CAMPBELL/rony JOB#: [id number] / [id number]
== END | disposition home or self-care (01) ==
LOC: PNCL 10:36
PROVIDERS: ATTEND Anesthesiology
DX: M51.16 Intervertebral disc disorders with radiculopathy, lumbar region (principal); M47.26 Other spondylosis with radiculopathy, lumbar region; Z88.5 Allergy status to narcotic agent; Z88.8 Allergy status to other drugs, medicaments and biological substances
CPT/HCPCS: 62323; J1030; J1040; J2001; Q9965

== ENCOUNTER → 2018-03-22 | Outpatient (CLI) | payer OTHER ==
[~2018-03-22] MED LIST changes: +LIDOCAINE 1% PF 2 ML VIAL. ONE; -LIDOCAINE 2% PF 2ML VIAL. ONE
--- NOTE | 2018-03-23 00:53 | PAIN ---
DATE OF SERVICE: 03/22/2018 PROGRESS NOTE FOR PAIN CLINIC DIAGNOSES: Lumbar radiculopathy with lumbar degenerative disk disease and lumbar spondylosis. HISTORY OF PRESENT ILLNESS: The patient is a 52-year-old female who returns for followup status post caudal epidural steroid injection x 2, most recently on 02/21/2018. The patient did very well with this with about 90% improvement in her pain in low back and left lower extremity. The patient reports for about the past 2 weeks, the pain has been returning, however, in the low back, posterior gluteus, posterior thigh on the left and posterior calf on the left as well into the foot; tingling, burning, cramping, stabbing, radiating; becoming more aching, more shooting, more constant; worse with walking, standing, change in positions. Before that she admits to increasing her distance walking with greater ease and comfort, doing household activities with much greater ease as well and feeling much better. The patient reports she has not felt that good in many years. The patient reports no new motor or sensory deficits, rates her pain as an 8 on a scale of 10 at its worst, 4 on average and 1 at its least and is a 4 today. The patient reports no new bowel or bladder incontinence or other complaints. PHYSICAL EXAMINATION: VITAL SIGNS: The patient's blood pressure 115/72, pulse 67, respirations are 16 and temperature 98.2 degrees Fahrenheit. Height is 5 feet 5 inches and weight is 217 pounds. GENERAL: The patient is awake, alert, oriented, appropriate and very pleasant demeanor. HEENT: Head is normocephalic and atraumatic. Extraocular movements are intact and symmetrical. Oral cavity: Mucous membranes are moist and pink. Dentition is intact. NECK: Shows anterior throat supple without palpable lymphadenopathy noted. Swallow reflex symmetrical. CHEST: Shows normal on inspection. Breath sounds clear to auscultation bilaterally. HEART: Shows S1 and S2 clear. No murmurs auscultated. ABDOMEN: Soft, nontender and nondistended. No palpable organomegaly is noted. No rebound or guarding demonstrated. BACK: Shows spine grossly in the midline. Normal appearing thoracic kyphosis, some minor flattening of the lumbar lordotic curvature. Lumbar paraspinous musculature shows symmetrical on inspection and palpation shows some moderate tenderness diffusely bilaterally, but only diffusely without radiation. The patient has good rotational motion of the lumbar spine, both laterally as well as extension and flexion without difficulty. EXTREMITIES: Lower extremities show deep tendon reflexes 1+ in the patellar and tendo-calcaneus tendons. Motor exam is approximately 4 on a scale of 5, but equal and symmetrical with dorsiflexion, extension, quadriceps and hamstring flexion. Peripheral pulses are 1+ posterior tibia. No peripheral edema is noted bilaterally. Options were discussed with the patient. The patient's old chart was reviewed as well as her current medication regimen updated. Current review of systems updated today as well. We will proceed with caudal epidural steroid injection today as a third in the series with fluoroscopic guidance. Risks were again discussed including, but not limited to bleeding, infection, possibility of epidural hematoma and subsequent neurological compromise, dural puncture, headaches, spinal cord and/or nerve damage, side effects of steroid medication and poor results regarding pain control. The patient understands and wished to proceed. The patient will return to the clinic in approximately 2 weeks for followup, was counseled as to return appointment, activity level and side effects to be aware of. DIAGNOSES: Lumbar radiculopathy with lumbar degenerative disk disease and lumbar spondylosis. PROCEDURE: Lumbar epidural steroid injection, caudal approach using C-arm fluoroscopic guidance under sterile prep and drape using local anesthetic. MEDICATION INJECTED: A total of 120 mg Depo-Medrol plus 10 mL of preservative-free normal saline and 2 mL of Isovue for contrast. CONDITION AT DISCHARGE: Stable. The patient tolerated the procedure well and had no complications. THEODORE SORIANO MD DR: CAMPBELL/rony JOB#: [id number] / [id number]
== END | disposition home or self-care (01) ==
LOC: PNCL 10:23
PROVIDERS: ATTEND Anesthesiology
DX: M51.16 Intervertebral disc disorders with radiculopathy, lumbar region (principal); M47.26 Other spondylosis with radiculopathy, lumbar region; Z88.5 Allergy status to narcotic agent; Z88.8 Allergy status to other drugs, medicaments and biological substances
CPT/HCPCS: 62323; J1030; J1040; Q9965

== ENCOUNTER → 2018-05-16 | Outpatient (CLI) | payer OTHER ==
[~2018-05-16] MED LIST changes: -IOHEXOL 180 MG/ML 10 ML VIAL. ONE; -LIDOCAINE 1% PF 2 ML VIAL. ONE; -methylPREDNISolone ACETATE 40 MG/ML VIAL. ONE; -methylPREDNISolone ACETATE 80 MG/ML VIAL. ONE
--- NOTE | 2018-05-16 14:38 | PAIN ---
DATE OF SERVICE: 05/16/2018 PROGRESS NOTE FOR PAIN CLINIC DIAGNOSIS: Lumbar radiculopathy with lumbar degenerative disk disease and lumbar spondylosis. HISTORY OF PRESENT ILLNESS: The patient is a 53-year-old female who returns for followup status post medication management as well as caudal epidural steroid injection. The patient reports she did very well after the last injection, which was on 03/22/2018. The patient reports about 89% improvement and decreasing the pain for about 4 weeks after the injection. The patient reports the pain has been returning now over the past week or so in the low back and left lower extremity, radiating into the posterior gluteus, posterior thigh, posterior calf, lateral thigh as well as the anterior calf. The patient reports it is a 10 on a scale of 10 at its worst, 7 on average, 4 at its least and is a 7 today. The patient reports a deep aching pain, sharp, shooting, tingling, burning, radiating, becoming more constant, more severe, worse with walking, standing and changing positions, better with sitting or lying down, but it has been getting to awaken her from sleep, again about every 5 hours at night. The patient reports no new motor or sensory deficits, no bowel or bladder incontinence. Does well with her medication regimen, which is getting her pain down to a dull lower and without significant side effects except for the constipation, but this is completely relieved with Symproic. The patient reports otherwise no new changes or complaints, no new motor or sensory deficits. PHYSICAL EXAMINATION: VITAL SIGNS: The patient's blood pressure is 129/78, pulse 67, respirations 18, temperature 98.5 degrees Fahrenheit, height is 5 feet 5 inches, weight is 221 pounds. GENERAL: The patient is awake, alert, oriented, appropriate, very pleasant demeanor. HEENT: Head shows normocephalic, atraumatic. Extraocular movements are intact and symmetrical. Oral cavity: Mucous membranes are moist and pink. Dentition is intact. NECK: Shows anterior throat supple without palpable lymphadenopathy noted. Swallow reflex is symmetrical. CHEST: Shows normal on inspection. Breath sounds are clear to auscultation bilaterally. HEART: Shows S1, S2 clear. No murmurs auscultated. ABDOMEN: Soft, nontender, nondistended. No palpable organomegaly is noted. No rebound or guarding demonstrated. BACK: Shows spine grossly in the midline. Normal appearing thoracic kyphosis and some minor flattening of lumbar lordotic curvature. Lumbar paraspinous muscle shows symmetrical on inspection, on palpation shows some moderate tenderness diffusely bilaterally, but only diffusely without significant radiation. EXTREMITIES: The patient's lower extremities show deep tendon reflexes at 1+ in the patellar and tendo-calcaneus tendons. Motor exam is approximately 4 on a scale of 5, but symmetrical and equal with dorsiflexion, extension, quadriceps and hamstring flexion. Peripheral pulses are 1+ posterior tibial. The patient's straight leg raise is noted to be mildly positive about 40 degrees on the left side, but decreased with knee flexion. Right side is negative. Options were discussed with the patient. The patient's old chart was reviewed as her current medication regimen updated. Current review of systems updated today as well. We will preauthorize the patient for a caudal approach epidural steroid injection as the patient has a persistent L5-S1 dermatomal radicular pain on the left side, significantly improved after the last injection, but now returning. The patient will be given refill medications of MS Contin as well as breakthrough pain medication, hydromorphone with instructions and side effects to be aware of. The patient has had appropriate K-TRACS reporting as well as appropriate urinalysis to date. We will refill this for a 2-month period. The patient was given instructions as well as side effects to be aware of with the medication. We will preauthorize the patient for a caudal approach epidural steroid injection and have her return in approximately 2 weeks for that. THEODORE SORIANO MD DR: CAMPBELL/rony JOB#: [id number] / [id number]
== END | disposition home or self-care (01) ==
LOC: PNCL 10:39
PROVIDERS: ATTEND Anesthesiology
DX: M51.16 Intervertebral disc disorders with radiculopathy, lumbar region (principal); M47.26 Other spondylosis with radiculopathy, lumbar region; K59.03 Drug induced constipation
CPT/HCPCS: G0463

== ENCOUNTER → 2018-06-04 | Outpatient (CLI) | payer OTHER ==
[~2018-06-04] MED LIST changes: +GABA-585 PO
--- NOTE | 2018-06-04 17:34 | PAIN ---
DATE OF SERVICE: 06/04/2018 DIAGNOSES: Lumbar radiculopathy with lumbar degenerative disk disease and lumbar spondylosis. HISTORY OF PRESENT ILLNESS: The patient is a 53-year-old female who returns for a followup status post caudal epidural steroid injection on 03/22, did very well by about 90% improvement. Pain has been returning in the low back and into the bilateral lower extremities, more on the left than the right. The patient reports she had some increased swelling lately. She is on prednisone dose 25 mg a day. She has been taking some Lasix which has been decreasing the swelling, but she does not quite feel ready to have another injection at this time. The patient has also been managed with oral medication, gabapentin, as well as narcotic medications, MS Contin extended release and hydromorphone, for breakthrough pain. The patient did very well with these, was given prescription on her last visit which was on 05/16 and still has medications available. The patient reports no side effects with the medication, reports overall about 75% improvement with medications alone. The patient reports no new motor or sensory deficits, still significant pain in low back, left lower extremity, primarily greater than the right. Rates it a 9 on a scale of 10 at its worst, 6 on average and a 3 at its least and is a 3 today. The patient reports it is aching, dull, shooting, tingling, burning, radiating into the left leg greater than the right, severe, unbearable at times, mostly worse with walking, standing, change in positions. She has been increasing her distance walking and doing household activities with much greater ease and comfort and traveling after her last injection, but this is beginning to return now. No new motor or sensory deficits. The patient reports no bowel or bladder incontinence. PHYSICAL EXAMINATION: VITAL SIGNS: The patient's blood pressure 135/46, pulse 69, respirations are 16, temperature is 98.6 degrees Fahrenheit, height is 5 feet 5 inches, weight is 222 pounds. GENERAL: The patient is awake, alert, oriented, appropriate, very pleasant demeanor. HEENT: Shows normocephalic, atraumatic. Extraocular movements are intact and symmetrical. Oral cavity shows mucous membranes are moist and pink. Dentition is intact. NECK: Shows anterior throat supple without palpable lymphadenopathy noted. Swallow reflex is symmetrical. CHEST: Shows normal on inspection. Breath sounds are clear to auscultation bilaterally. HEART: Shows S1, S2 clear. No murmurs auscultated. ABDOMEN: Soft, nontender, nondistended. No palpable organomegaly is noted. No rebound or guarding demonstrated. MUSCULOSKELETAL: Back shows spine grossly in the midline, normal appearing thoracic kyphosis and minor flattening of lumbar lordotic curvature. Lumbar paraspinous muscle shows symmetrical on inspection, with palpation shows some moderate tenderness diffusely without radiation. The patient has good rotational motion both laterally as well as extension and flexion without significant pain reported. No tenderness over the sacrum or sacroiliac regions. Lower extremities show deep tendon reflexes are 1+ in the patellar and tendo-calcaneus tendons. Motor exam is strong with approximately 4 on a scale of 5 dorsiflexion, extension, quadriceps and hamstring flexion equal and symmetrical. Peripheral pulses are 1+ posterior tibia. No peripheral edema is noted bilaterally. PLAN: Options were discussed with the patient. The patient's old chart was reviewed as her current medication regimen and updated. Current review of systems updated today as well. We will hold on any further injections at this time as she would like to wait until she is having less peripheral swelling. The patient has contacted her primary physician and we will increase her Lasix dose as recommended. The patient will return to the clinic in approximately 2 weeks. We will plan on potential caudal epidural steroid injection at that time. The patient was counseled on her activity level as well as side effects to be aware of. Also discussed the medication regimen, discussed potential side effects and usage as well. THEODORE SORIANO MD DR: CAMPBELL/rony JOB#: [id number] / [id number]
== END | disposition home or self-care (01) ==
LOC: PNCL 10:42
PROVIDERS: ATTEND Anesthesiology
DX: M51.16 Intervertebral disc disorders with radiculopathy, lumbar region (principal); M47.896 Other spondylosis, lumbar region
CPT/HCPCS: G0463

== ENCOUNTER → 2018-08-22 | Outpatient (CLI) | payer OTHER ==
--- NOTE | 2018-08-22 23:38 | PAIN ---
DATE OF SERVICE: 08/22/2018 PROGRESS NOTE FOR PAIN CLINIC DIAGNOSES: 1. Lumbar radiculopathy with lumbar degenerative disk disease and lumbar spondylosis. 2. Right hip joint pain. HISTORY OF PRESENT ILLNESS: The patient is a 53-year-old female who returns for followup status post caudal epidural steroid injections as well as medication management with both MS Contin and hydromorphone. The patient did very well with this very stable regimen. The patient reports she was recently hospitalized for upper respiratory infection, was put on high-dose steroids which did decrease the pain significantly, but she has put on about 15 pounds of weight and would like to wait on any further injections at this time secondary to that. The patient reports still significant pain in low back, left lower extremity, posterior gluteus, posterior thigh, posterior calf and into the foot, radiating. It is a 10 on a scale of 10 at its worst, 4 on average, 1 at its least and it is a 5 today. The patient reports it is aching, dull, sharp, shooting, tingling, cramping in the back, radiating to the left leg, severe pain in the back and hips as well as some tightness in the chest recently. The patient reports no new motor or sensory deficits. No new bowel or bladder incontinence or other complaints. Again does well with the medication regimen and has been on a very stable regimen. No side effects specifically, except occasional constipation, which she is currently not having any difficulty with, has been using increased hydration and [id number] laxatives to decrease and doing quite well with this. The patient reports no new bowel or bladder incontinence, no new motor or sensory deficits. PHYSICAL EXAMINATION: VITAL SIGNS: The patient's blood pressure is 118/78, pulse 83, respirations 16 and temperature is 98.5 degrees Fahrenheit. Height is 5 feet 5 inches, weight is 225 pounds. GENERAL: The patient is awake, alert, oriented and appropriate, very pleasant demeanor. HEENT EXAMINATION: Shows normocephalic, atraumatic. Extraocular movements are intact and symmetrical. Oral cavity, mucous membranes are moist and pink. Dentition is intact. NECK: Shows anterior throat supple, without palpable lymphadenopathy noted. Swallow reflex is symmetrical. CHEST: Shows normal on inspection. Breath sounds are clear to auscultation bilaterally. No rales, rhonchi or wheezes auscultated. HEART: Shows S1 and S2 clear. No murmurs auscultated. ABDOMEN: Obese, soft, nontender and nondistended. No palpable organomegaly is noted. No rebound or guarding demonstrated. BACK: Shows spine grossly in the midline. Normal-appearing thoracic kyphosis. Some minor flattening of the lumbar lordotic curvature. Lumbar paraspinous muscle shows symmetrical on inspection. On palpation, it shows some moderate tenderness diffusely bilaterally in the middle and lower distribution of the paraspinous muscles, but good rotational motion both laterally as well as extension and flexion without difficulty. EXTREMITIES: Lower extremities show deep tendon reflexes 1+ in the patellar and tendo calcaneus tendons. Motor exam is approximately 4 on a scale of 5 and equal with dorsiflexion and extension. Peripheral pulses are 1+ posterior tibia. No peripheral edema is noted. Options were discussed with the patient. The patient's old chart was reviewed as was her current medication regimen updated. Current review of systems updated today as well. We will hold on any further injections currently at this time. We will refill the patient's MS Contin as well as hydromorphone with instructions and side effects to be aware of. The patient has had appropriate K-TRACS reporting as well as appropriate urinalysis to date and we will refill this for a 2-month period. The patient will follow up in approximately 1 month as scheduled or sooner if necessary. The patient was given instruction as well as side effects to be aware of the medications and will follow up as scheduled. THEODORE SORIANO MD DR: CAMPBELL/rony JOB#: [id number] / [id number]
== END | disposition home or self-care (01) ==
LOC: PNCL 11:08
PROVIDERS: ATTEND Anesthesiology
DX: M51.16 Intervertebral disc disorders with radiculopathy, lumbar region (principal); M47.896 Other spondylosis, lumbar region; M25.551 Pain in right hip
CPT/HCPCS: G0463

== ENCOUNTER → 2018-10-12 | Outpatient (CLI) | payer OTHER ==
--- NOTE | 2018-10-13 00:08 | PAIN ---
DATE OF SERVICE: 10/12/2018 PROGRESS NOTE FOR PAIN CLINIC: DIAGNOSES: Lumbar radiculopathy with lumbar degenerative disk disease, lumbar spondylosis. HISTORY OF PRESENT ILLNESS: The patient is a 53-year-old female who returns for followup status post caudal epidural steroid injections as well as medication management with both MS Contin and hydromorphone and gabapentin. The patient reports she is doing very well with the gabapentin, has been decreasing the pain in her low back and left leg, but still significant pain radiating in the low back, left lower extremity, posterior gluteus, posterior thigh, posterior calf into the foot in a radicular pattern on the left side following a L5-S1 dermatomal distribution. The patient reports it is a 9 on a scale of 10 at its worst, 6 on average over the past week and 0 at its least and is a 6 today. The patient reports no new motor or sensory deficits, no new bowel or bladder incontinence. She is having some increased temperature with some autoimmune symptoms this week as well, but otherwise, is doing better. It has been waking her from sleep occasionally, but not most nights in the low back and left leg. The patient reports it is tingling, burning, cramping, sharp pain and then becomes severe and unbearable with walking, standing, changing positions, better with sitting or lying down. The patient reports no new motor or sensory loss. PHYSICAL EXAMINATION: VITAL SIGNS: The patient's blood pressure is 109/68, pulse 70, respirations 18, temperature 98.4 degrees Fahrenheit, height is 5 feet 5 inches, weight is 219 pounds. GENERAL: The patient is awake, alert, oriented, appropriate, very pleasant demeanor. HEENT: Head shows normocephalic, atraumatic. Extraocular movements are intact and symmetrical. Oral cavity: Mucous membranes moist and pink. Dentition is intact. NECK: Shows anterior throat supple without palpable lymphadenopathy noted. Swallow reflex symmetrical. CHEST: Shows normal with inspection. Breath sounds clear to auscultation bilaterally. HEART: Shows S1, S2 clear. No murmurs auscultated. ABDOMEN: Obese, soft, nontender, nondistended. No palpable organomegaly is noted. No rebound or guarding demonstrated. BACK: Shows spine grossly in the midline. Normal appearing thoracic kyphosis, minor flattening of lumbar lordotic curvature. Lumbar paraspinous muscle shows symmetrical on inspection, with palpation shows some moderate tenderness diffusely throughout the upper, middle and lower distribution of paraspinous muscles bilaterally, but only diffusely without radiation, without trigger points. No tenderness over the spinous processes, sacrum or sacroiliac regions. The patient has good rotational motion of lumbar spine, both laterally as well as extension and flexion without significant difficulty. EXTREMITIES: Lower extremities show deep tendon reflexes 1+ in the patellar and tendo calcaneus tendons. Motor exam is 4 on a scale of 5, but equal and symmetrical dorsiflexion, extension, quadriceps and hamstring flexion. Peripheral pulses are 1+ posterior tibia. No peripheral edema is noted. The patient's straight leg raise noted to be slightly positive on the left side about 40 degrees. Right side is negative. Options were discussed with the patient. The patient's old chart was reviewed as her current medication regimen updated. Current review of systems updated today as well. We will preauthorize the patient for caudal approach epidural steroid injection as she has done very well with these in the past, most recent one was on 03/22/2018. The patient had 89% improvement for about 4 weeks. The pain began to return after that time and is built up to the level where it is now basically back to baseline over several months. The patient with L5-S1 dermatomal distribution of radiculopathy on the left side. We will schedule for a caudal approach epidural steroid injection at the L5-S1 level. The patient will be given refill for MS Contin 30 mg q. 12 hours. Also, gabapentin will be increased to 400 mg at bedtime from 300 mg. The patient was given instruction as well as side effects to be aware of each of the medications. The patient has had appropriate K-TRACS reporting as well as appropriate urinalyses to date. We refilled the medication for 2 months. The patient will follow up in approximately 2 weeks. We will plan on caudal epidural steroid injection at that time. THEODORE SORIANO MD DR: CAMPBELL/rony JOB#: [id number] / [id number]
== END | disposition home or self-care (01) ==
LOC: PNCL 10:40
PROVIDERS: ATTEND Anesthesiology
DX: M51.16 Intervertebral disc disorders with radiculopathy, lumbar region (principal); M47.816 Spondylosis without myelopathy or radiculopathy, lumbar region
CPT/HCPCS: G0463

== ENCOUNTER → 2018-12-19 | Outpatient (CLI) | payer OTHER ==
--- NOTE | 2018-12-19 23:09 | PAIN ---
DATE OF SERVICE: 12/19/2018 PROGRESS NOTE FOR PAIN CLINIC DIAGNOSES: Lumbar radiculopathy with lumbar degenerative disk disease and lumbar spondylosis. HISTORY OF PRESENT ILLNESS: The patient is a 53-year-old female who returns for followup status post caudal epidural steroid injection as well as medication management. The patient returns for medication refill today. We discussed the possible caudal epidural steroid injection in the near future, although she does not have time in her schedule for that today. We will have her return in approximately 2 days for the injection, but today, we will have her medications refilled. She is doing quite well with these, is very stable, is on a very stable regimen with the medications without side effects with the MS Contin as well as hydromorphone for breakthrough pain. The patient reports no new motor or sensory deficits, no new changes, still significant pain in the low back and into the left greater than right lower extremity, posterior gluteus, posterior thigh and calf as well as the left foot and ankle. The patient reports as 10 on a scale of 10 at its worst over the past week, 6 on average and a 4 at its least, is a 6 today. The patient reports it is tingling, burning, stabbing, aching, sharp, radiating, severe at times. The patient reports no new motor or sensory deficits, no new bowel or bladder incontinence or other complaints. Does not awaken her from sleep at night, better with sitting or lying down. PHYSICAL EXAMINATION: VITAL SIGNS: The patient's blood pressure 110/68, pulse 75, respirations 18, temperature 98.5 degrees Fahrenheit, height is 5 feet 5 inches and weight is 215 pounds. GENERAL: The patient is awake, alert, oriented, appropriate, very pleasant demeanor. HEENT: Head is normocephalic, atraumatic. Extraocular movements are intact and symmetrical. Oral cavity: Mucous membranes moist and pink. Dentition is intact. NECK: Shows anterior throat supple without palpable lymphadenopathy noted. Swallow reflex is symmetrical. CHEST: Shows normal on inspection. Breath sounds are clear bilaterally. HEART: Shows S1, S2 clear. ABDOMEN: Soft, nontender and nondistended. BACK: Shows spine grossly in the midline. Normal-appearing thoracic kyphosis. Some moderate tenderness with palpation diffusely throughout the upper, middle and lower distribution of paraspinous muscles bilaterally. EXTREMITIES: Lower extremities show deep tendon reflexes at 1+ in the patellar and tendo-calcaneus tendons. Motor exam is approximately 4 on a scale of 5, but equal and symmetrical with dorsiflexion, extension, quadriceps and hamstring flexion. Peripheral pulses are 1+ in posterior tibia. No peripheral edema is noted. Options were discussed with the patient. The patient's old chart was reviewed as her current medication regimen updated. Current review of systems updated today as well. We will refill the patient's MS Contin 30 mg as well as hydromorphone 30 mg with instructions, side effects to be aware of discussed with each of these. The patient has had appropriate K-TRACS reporting as well as appropriate urinalysis to date and we will make this for a 2-month prescription, also refill the patient's gabapentin 400 mg at bedtime and she reports this is helpful with sleeping. The patient will return to the clinic again in approximately 2 days. We will plan on caudal epidural steroid injection at that time. THEODORE SORIANO MD DR: CAMPBELL/rony JOB#: [id number] / [id number]
== END | disposition home or self-care (01) ==
LOC: PNCL 11:06
PROVIDERS: ATTEND Anesthesiology
DX: M51.16 Intervertebral disc disorders with radiculopathy, lumbar region (principal); M47.816 Spondylosis without myelopathy or radiculopathy, lumbar region
CPT/HCPCS: G0463

== ENCOUNTER → 2018-12-21 | Outpatient (CLI) | payer OTHER ==
--- NOTE | 2018-12-22 02:20 | PAIN ---
DATE OF SERVICE: 12/21/2018 DIAGNOSES: Lumbar radiculopathy with lumbar degenerative disk disease and lumbar spondylosis. HISTORY OF PRESENT ILLNESS: The patient is a 53-year-old female who returns for followup status post medication management as well as caudal epidural steroid injections, returns for caudal epidural steroid injection today. The patient reports significant pain in low back, left lower extremity as was previously in posterior gluteus, posterior thigh, posterior calf, radiating and tingling, described as stabbing, burning, aching, sharp, radiating and severe in the low back. The patient reports it is 10 on a scale of 10 at its worst in the past week, 6 on average, 4 this week and 6 today. The patient reports no new motor or sensory deficits, no new bowel or bladder incontinence, but still significant pain in the low back and left lower extremity as described. Reports no new changes. No new deficits. PHYSICAL EXAMINATION: VITAL SIGNS: The patient's blood pressure is 125/68, pulse 59, respirations 18, temperature is 98.8 degree Fahrenheit, height 5 feet 5 inches, weighs 205 pounds. GENERAL: The patient is awake, alert, oriented, appropriate, very pleasant demeanor. HEENT: Head shows normocephalic, atraumatic. Extraocular movements are intact and symmetrical. Oral cavity: Mucous membranes are moist and pink. Dentition is intact. NECK: Shows anterior throat supple without palpable lymphadenopathy noted. Swallow reflex symmetrical. CHEST: Shows normal on inspection. Breath sounds clear to auscultation bilaterally. HEART: Shows S1, S2 clear. No murmurs auscultated. ABDOMEN: Soft, nontender, and nondistended. No palpable organomegaly is noted. No rebound or guarding demonstrated. BACK: Shows spine grossly in the midline. Normal appearing thoracic kyphosis, some minor flattening of lumbar lordotic curvature. Lumbar paraspinous muscle shows symmetrical on inspection, on palpation shows some moderate tenderness diffusely bilaterally, but only diffusely without significant radiation. EXTREMITIES: The patient's lower extremities show deep tendon reflexes 1+ and the patellar and tendo calcaneus tendons are equal. Motor exam is strong with approximately 4 on a scale of 5, but symmetrical and equal dorsiflexion, extension, quadriceps and hamstring flexion. Peripheral pulses are 1+ posterior tibia. No peripheral edema is noted. Options were discussed with the patient. The patient's old chart was reviewed and her current medication regimen updated. Current review of systems updated today as well. We will proceed with a caudal approach epidural steroid injection today with fluoroscopic guidance. Risks were then discussed including, but not limited to bleeding, infection, possibility of epidural hematoma, subsequent neurologic compromise, dural puncture, headache, spinal cord and/or nerve damage, side effects of steroid medication and poor results regarding pain control. The patient understands and wished to proceed. The patient will return to clinic in approximately 2 weeks for followup, was counseled on return appointment, activity level and side effects to be aware of. DIAGNOSES: Lumbar radiculopathy with lumbar degenerative disk disease and lumbar spondylosis. PROCEDURE: Caudal epidural steroid injection using C-arm fluoroscopic guidance under sterile prep and drape using local anesthetic. MEDICATIONS INJECTED: A total of 120 mg Depo-Medrol plus 10 mL of preservative-free normal saline and 2 mL of Isovue for contrast. CONDITION AT DISCHARGE: Stable. The patient tolerated the procedure well, had no complications. THEODORE SORIANO MD DR: CAMPBELL/rony JOB#: [id number] / [id number]
== END ==
LOC: PNCL 09:35
PROVIDERS: ATTEND Anesthesiology
DX: M51.16 Intervertebral disc disorders with radiculopathy, lumbar region (principal); M47.816 Spondylosis without myelopathy or radiculopathy, lumbar region
CPT/HCPCS: 62323

== ENCOUNTER → 2019-02-13 | Outpatient (CLI) | payer OTHER ==
--- NOTE | 2019-02-13 21:36 | PAIN ---
DATE OF SERVICE: 02/13/2019 DIAGNOSES: Lumbar radiculopathy with lumbar degenerative disk disease and lumbar spondylosis. HISTORY OF PRESENT ILLNESS: This is a pleasant 54-year-old female who returns for followup status post caudal epidural steroid injection, last seen 12/21, also with medication management with MS Contin and hydromorphone and gabapentin. The patient reports that she has recently had a lumbar diskectomy and laminectomy at [facility] and is doing quite a bit better about 60%. The patient reports still some pain in the low back and hips, but much better. She has increased her activity, walking greater distances, greater comfort and ease, sleeping better at night. Reports she has decreased her hydromorphone used only 1 tablet a day and is trying to decrease the medication total. At this time, the patient reports no new motor or sensory deficits, no new changes. Reports the pain is a 7 on a scale of 10 at its worst in the past week, 4 on average, 2 at its least and is a 2 today. The patient reports it is aching, sharp, tingling, burning, sometimes severe with extended walking, but doing much better with shorter walking and sleeping. PHYSICAL EXAMINATION: VITAL SIGNS: The patient's blood pressure is 125/62, pulse 67, respirations 16, temperature 98.9 degrees Fahrenheit, height is 5 feet 5 inches, weight is 216 pounds. GENERAL: The patient is awake, alert, oriented, appropriate, very pleasant demeanor. HEENT: Head shows normocephalic, atraumatic. Extraocular movements are intact and symmetrical. Oral cavity: Mucous membranes moist and pink. Dentition is intact. NECK: Shows anterior throat supple without palpable lymphadenopathy noted. Swallow reflex symmetrical. CHEST: Shows normal on inspection. Breath sounds clear to auscultation bilaterally. HEART: Shows S1, S2 clear. No murmurs auscultated. ABDOMEN: Soft, nontender, nondistended. No palpable organomegaly is noted. BACK: Shows spine grossly in the midline with some moderate tenderness throughout the lumbar distribution of the upper, middle and lower distribution of paraspinous muscles, but only diffusely without radiation. The patient's back does show well healing recent surgical scar. EXTREMITIES: The patient's lower extremities show deep tendon reflexes at 1+ in the patellar and tendo calcaneus tendons. Motor exam is approximately 4 on a scale of 5, but equal and symmetrical bilaterally. Peripheral pulses are 1+ posterior tibial. No peripheral edema is noted. Options were discussed with the patient. The patient's old chart was reviewed as her current medication regimen updated. Current review of systems updated today as well. We will refill the patient's MS Contin 30 mg extended release for 2-month period. The patient requests no refill of her hydromorphone as she has tablets at home, which she has not been taking, also discussed gabapentin use. We will try taking 100 mg q.a.m. and at noon as well as a 400 at bedtime. The patient was given instructions on side effects to be aware of each of the medications. She has had appropriate K-TRACS reporting as well as appropriate urinalysis to date and will follow up in approximately 2 months or sooner as necessary. THEODORE SORIANO MD DR: CAMPBELL/rony JOB#: [id number] / [id number]
== END | disposition home or self-care (01) ==
LOC: PNCL 11:05
PROVIDERS: ATTEND Anesthesiology
DX: M51.16 Intervertebral disc disorders with radiculopathy, lumbar region (principal); M47.26 Other spondylosis with radiculopathy, lumbar region
CPT/HCPCS: G0463

== ENCOUNTER → 2019-03-27 | Outpatient (CLI) | payer OTHER ==
--- NOTE | 2019-03-27 16:13 | PAIN ---
DATE OF SERVICE: 03/27/2019 PROGRESS NOTE FOR PAIN CLINIC VISIT DIAGNOSES: 1. Lumbar radiculopathy with lumbar degenerative disk disease and lumbar spondylosis. 2. Right hip joint pain. HISTORY OF PRESENT ILLNESS: The patient is a 54-year-old female who returns for followup status post caudal epidural steroid injections and medication management with both MS Contin, hydromorphone, and gabapentin. The patient reports she is taking gabapentin out 200 mg in the morning and 600 mg at night, is doing fairly well with this with decreased pain in the left lower extremity. The patient reports the pain in the back is still improved. She was on a steroid dose recently, which has helped the pain significantly as well. The patient reports the pain is 8 on a scale of 10 at its worst in the last week, 5 on an average, 2 at its least and is a 5 today. The patient reports tingling, burning, cramping, aching, and dull in the low back itself and his lower extremities, radiating quality as well with walking and standing. The patient reports it does not awaken her from sleep at night. She feels much better when she is sitting or lying down, worse with walking and standing. The patient reports no new motor or sensory deficits and no side effects with the medications. The patient reports the medications alone is about 65%-70% improvement without significant side effects with the MS Contin and is only using hydromorphone very sparingly. She has gone 2-3 days without using it over the past several weeks as well. PHYSICAL EXAMINATION: VITAL SIGNS: The patient's blood pressure 136/79, pulse 67, respirations 18, temperature 98.9 degrees Fahrenheit, height is 5 feet 5 inches, weight is 216 pounds. GENERAL: The patient is awake, alert, oriented, appropriate, very pleasant demeanor. HEENT: Head shows normocephalic, atraumatic. Extraocular movements are intact and symmetrical. Oral cavity: Mucous membranes moist and pink. Dentition is intact. NECK: Shows anterior throat supple without palpable lymphadenopathy noted. Swallow reflex symmetrical. CHEST: Shows normal on inspection. Breath sounds clear bilaterally. HEART: Shows S1, S2 clear. No murmurs auscultated. ABDOMEN: Soft, nontender, nondistended. No palpable organomegaly is noted. No rebound or guarding demonstrated. BACK: Shows spine grossly in the midline, slightly exaggerated thoracic kyphosis and minor flattening of lumbar lordotic curvature. Lumbar paraspinous muscle shows symmetrical on inspection, on palpation shows some moderate tenderness in the lumbar paraspinous muscles bilaterally, but only diffusely without significant radiation. The patient has good rotational motion of lumbar spine, both laterally as well as extension and flexion without significant difficulty. EXTREMITIES: The patient's lower extremities show deep tendon reflexes at 1+ in the patellar and tendo calcaneus tendons. Motor exam is strong with 5/5 dorsiflexion, extension, quadriceps and hamstring flexion. Options were discussed with the patient. The patient's old chart was reviewed as her current medication regimen updated. Current review of systems updated today as well and we will refill the patient's MS Contin 30 mg with instructions, side effects to be aware of discussed. Also, refill the patient's gabapentin. The patient does not need a refill on hydromorphone and is already given 1 month prescription refill for the MS Contin as she is planning to taper this down. We discussed after the first of the year, having decreased to 20 mg of the MS Contin as well and we will aim for that as tolerated also. The patient will follow up in approximately 6 weeks as scheduled. THEODORE SORIANO MD DR: CAMPBELL/nts JOB#: [id number] / [id number]
== END | disposition home or self-care (01) ==
LOC: PNCL 11:14
PROVIDERS: ATTEND Anesthesiology
DX: M51.16 Intervertebral disc disorders with radiculopathy, lumbar region (principal); M47.26 Other spondylosis with radiculopathy, lumbar region; M25.551 Pain in right hip
CPT/HCPCS: G0463

== ENCOUNTER → 2019-05-08 | Outpatient (CLI) | payer OTHER ==
[~2019-05-08] MED LIST changes: +GABA600T7 PO; +HYDR12.575 PO; +MELA3TAB43 PO
--- NOTE | 2019-05-08 12:24 | PAIN ---
DATE OF SERVICE: 05/08/2019 PROGRESS NOTE FOR PAIN CLINIC DIAGNOSES: 1. Lumbar radiculopathy, lumbar degenerative disk disease, lumbar spondylosis and post-lumbar laminectomy syndrome. 2. Right hip joint pain. HISTORY OF PRESENT ILLNESS: The patient is a 54-year-old female who returns for followup status post caudal epidural steroid injection as well as medication management with both MS Contin and hydromorphone. The patient reports she is doing fairly well with these. She is getting ready to leave town after [place] for 1 week trip, where she is driving and extended distance with her family. The patient reports that she is having some numbness in the left leg following at approximately L4-L5 dermatomal distribution with some spasms in the hip as well as the low back. The patient reports it is a 9 on a scale of 10, its worst over the past week, 5 on average, 1 at its least and is a 5 today. The patient reports it is aching, sharp, shooting, tingling, burning, cramping, radiating, sometimes severe. She has been doing some stretching and heat and cold application especially and some massage techniques, but the pain is fairly persistent with ambulation. The patient reports it does not awaken her from sleep at night and not very often. No new motor or sensory deficits, no bowel or bladder incontinence. PHYSICAL EXAMINATION: VITAL SIGNS: The patient's blood pressure 115/69, pulse 69, respirations 16, temperature 98.2 degrees Fahrenheit, height is 5 feet 5 inches and weight is 213 pounds. GENERAL: The patient is awake, alert, oriented, appropriate, very pleasant demeanor. HEENT: Shows normocephalic and atraumatic. Extraocular movements are intact and symmetrical. Oral cavity: Mucous membranes moist and pink. Dentition is intact. NECK: Shows anterior throat supple without palpable lymphadenopathy noted. Swallow reflex symmetrical. CHEST: Shows normal on inspection. Breath sounds clear bilaterally. HEART: Shows S1, S2 clear. Soft, obese, nontender, nondistended. BACK: Shows spine grossly in the midline, slightly exaggerated thoracic kyphosis and flattening of lumbar lordotic curvature with well-healed surgical scar noted. Lumbar paraspinous muscle shows symmetrical on inspection with palpation shows some [id number] tenderness, more on the left than the right in the low lumbar distribution of paraspinous muscles, but without radiation, without trigger points. The patient has good rotational motion of lumbar spine, both laterally as well as extension and flexion without difficulty. EXTREMITIES: Lower extremities show deep tendon reflexes at 1+ in the patellar and tendo calcaneus tendons. Motor exam is strong with 4 on a scale of 5, but equal and symmetrical bilaterally. Peripheral pulses are 1+ posterior tibia. No peripheral edema is noted. Options were discussed with the patient. The patient's old chart was reviewed as her current medication regimen updated. Current review of systems updated today as well. We will refill the patient's medication, MS Contin as well as hydromorphone and gabapentin, also add Medrol Dosepak to see if this may decrease some of the numbness and tingling in the radicular pattern in the left leg. The patient has had no significant side effects with the medications, reports about a 70% improvement overall with the medications and we had appropriate K-TRACS reporting as well as appropriate urinalysis to date. We will refill these for 2-month period with an okay to fill the MS Contin early as she is leaving town and it would normally be refilled about 4 days after she leaves town. The patient was given instruction as well as side effects to be aware of each of the medications. We will have urinalysis today as routine screening and we will follow up in approximately 2 months or sooner as necessary. THEODORE SORIANO MD DR: CAMPBELL/rony JOB#: [id number] / [id number]
== END ==
LOC: PNCL 11:02
PROVIDERS: ATTEND Anesthesiology
DX: M51.16 Intervertebral disc disorders with radiculopathy, lumbar region (principal); M47.26 Other spondylosis with radiculopathy, lumbar region; M25.551 Pain in right hip
CPT/HCPCS: G0463

== ENCOUNTER → 2019-07-03 | Outpatient (CLI) | payer OTHER ==
[~2019-07-03] MED LIST changes: +FERR-36 PO; +VITAMIN D
--- NOTE | 2019-07-03 21:52 | PAIN ---
DATE OF SERVICE: 07/03/2019 PROGRESS NOTE FOR PAIN CLINIC DIAGNOSES: 1. Lumbar radiculopathy with lumbar degenerative disk disease, lumbar spondylosis, post-lumbar laminectomy syndrome. 2. Right hip joint pain. HISTORY OF PRESENT ILLNESS: The patient is a 54-year-old female who returns for followup status post caudal epidural steroid injection as well as medication management. The patient has been taking MS Contin as well as hydromorphone. The patient has decreased her hydromorphone significantly to about twice a week. At this time, is to take the MS Contin twice daily as well as gabapentin alternating from 400-600 mg. The patient reports she is doing fairly well with this regimen and is wanting to decrease her narcotic use even further. We discussed ways to do this and she will keep trying and decreasing as tolerated. The patient reports no specific side effects with the medication, overall about 75% improvement with the pain, still some significant pain in the low back and in the right hip with activity, but much more tolerable. The patient reports it is a 9 on a scale of 10 at its worst over the past week, 4 on average, 0 at its least and is a 4 today. The patient reports it is tingling, burning, cramping, stabbing in the back and neck, upper back, lower back and right hip, aching and dull, shooting across the back and sometimes severe, sometimes radiating to the left lower extremity as well. The patient reports no new motor or sensory deficits, no new bowel or bladder incontinence or other complaints. PHYSICAL EXAMINATION: VITAL SIGNS: The patient's blood pressure is 116/75, pulse 67, respirations 16, temperature is 98.1 degrees Fahrenheit, weight is 217 pounds. GENERAL: The patient is awake, alert, oriented, appropriate, very pleasant demeanor. HEENT: Shows normocephalic, atraumatic. Extraocular movements are intact and symmetrical. Oral cavity: Mucous membranes moist and pink. Dentition is intact. NECK: Shows anterior throat supple without palpable lymphadenopathy noted. Swallow reflex symmetrical. CHEST: Shows normal on inspection. Breath sounds are clear bilaterally. HEART: Shows S1, S2 clear. No murmurs auscultated. ABDOMEN: Soft, nontender, nondistended. No palpable organomegaly is noted. No rebound or guarding demonstrated. BACK: Shows spine grossly in the midline, slight exaggerated thoracic kyphosis and minor flattening of lumbar lordotic curvature with well-healed surgical scarring noted. Lumbar paraspinous muscle shows symmetrical on inspection, with palpation shows some moderate tenderness diffusely bilaterally going diffusely without significant radiation. The patient has good rotational motion of lumbar spine, both laterally as well as extension and flexion without significant pain reported. EXTREMITIES: The patient's lower extremities show deep tendon reflexes 1+ in the patellar and tendo calcaneus tendons. Motor exam is approximately 4 on a scale of 5, but equal and symmetrical bilaterally. Peripheral pulses are 1+ posterior tibia. No peripheral edema is noted. Options were discussed with the patient. The patient's old chart was reviewed as her current medication regimen updated. Current review of systems updated today as well. We will proceed with refill of the patient's MS Contin and also gabapentin, but not the hydromorphone as the patient has some from her last refill and has been using them very sparingly. The patient was given instruction as well as side effects to be aware of with the medications. The patient has had appropriate K-TRACS reporting as well as appropriate urinalysis to-date and we will fill this for 2-month period refill. The patient will follow up in approximately 2 months or sooner as necessary, given instruction as well as side effects to be aware of with each of the medication. THEODORE SORIANO MD DR: CAMPBELL/rony JOB#: [id number] / [id number]
== END | disposition home or self-care (01) ==
LOC: PNCL 11:34
PROVIDERS: ATTEND Anesthesiology
DX: M51.16 Intervertebral disc disorders with radiculopathy, lumbar region (principal); M47.26 Other spondylosis with radiculopathy, lumbar region; M25.551 Pain in right hip; M96.1 Postlaminectomy syndrome, not elsewhere classified
CPT/HCPCS: G0463

== ENCOUNTER → 2019-10-09 | Outpatient (CLI) | payer OTHER ==
[~2019-10-09] MED LIST changes: +MONT10TA49 PO
--- NOTE | 2019-10-09 13:16 | PAIN ---
DATE OF SERVICE: 10/09/2019 PROGRESS NOTE FOR PAIN CLINIC DIAGNOSES: 1. Lumbar radiculopathy with lumbar degenerative disk disease, lumbar spondylosis and post-lumbar laminectomy syndrome. 2. Right hip joint pain. HISTORY OF PRESENT ILLNESS: The patient is a 54-year-old female who returns for followup status post previous caudal epidural steroid injections and medication management with both MS Contin and hydromorphone. The patient reports she has been doing very well with this. Also, gabapentin, she has increased the gabapentin to taking a tablet midday as well as 200 mg in the morning and 400 mg at night. The patient reports this is helping, but she is having some significant sleepiness during the day. The patient reports pain in low back and left leg is still present, left posterior gluteus, posterior thigh, posterior calf, radiating into the ankle in a radicular pattern on the left side as she has had previously. The patient reports the pain is a 10 on a scale of 10 at its worst over the past week, 5 on average, 1 at its least and is a 5 today. The patient reports it is aching, dull, sharp, alternating in the back, shooting in the legs, tingling, burning, cramping, stabbing at times with radiating pain that can be become severe with activity. The patient reports no new motor or sensory deficits, no new bowel or bladder incontinence. PHYSICAL EXAMINATION: VITAL SIGNS: The patient's blood pressure 132/78, pulse 80, respirations 18, temperature 98.8 degrees Fahrenheit, height is 5 feet 5 inches, weight is 221 pounds. GENERAL: The patient is awake, alert, oriented, appropriate, very pleasant demeanor. HEENT: Exam shows normocephalic, atraumatic. Extraocular movements are intact and symmetrical. Oral cavity shows mucous membranes moist and pink. Dentition is intact. NECK: Shows anterior throat supple without palpable lymphadenopathy noted. Swallow reflex symmetrical. CHEST: Shows normal on inspection. Breath sounds are clear bilaterally. HEART: Shows S1, S2 clear. No murmurs auscultated. ABDOMEN: Soft, nontender, nondistended. No palpable organomegaly is noted. No rebound or guarding demonstrated. BACK: Shows spine grossly in the midline. Normal appearing thoracic kyphosis and minor flattening of lumbar lordotic curvature with well-healed surgical scarring noted. Lumbar paraspinous muscle shows symmetrical on inspection, on palpation shows some moderate tenderness diffusely bilaterally but only diffusely without significant radiation. EXTREMITIES: The patient's lower extremities show deep tendon reflexes at 1+ in the patellar and tendo calcaneus tendons. Motor exam is approximately 4 on a scale of 5, but symmetrical dorsiflexion, extension, quadriceps and hamstring flexion. Peripheral pulses are 1+ posterior tibia. No peripheral edema is noted bilaterally. Options were discussed with the patient. The patient's old chart was reviewed as her current medication regimen updated. Current review of systems updated today as well. We will preauthorize the patient for a caudal epidural steroid injection, as she has done very well with these in the past, but still with radicular pain in the left L5-S1 dermatomal distribution radiating to the left leg and foot. The patient will be also given refill medications for MS Contin 30 mg extended release as she has been on a very stable regimen with this, has had appropriate K-TRACS reporting as well as appropriate urinalysis today and will be given a 2-month prescription, also gabapentin refill. The patient was given instruction as well as side effects to be aware of each of the medications and will return to clinic for a caudal approach lumbar epidural steroid injection for again left L5-S1 radiculopathy. THEODORE SORIANO MD DR: CAMPBELL/rony JOB#: [id number] / [id number]
== END ==
LOC: PNCL 11:32
PROVIDERS: ATTEND Anesthesiology
DX: M47.26 Other spondylosis with radiculopathy, lumbar region (principal); M51.16 Intervertebral disc disorders with radiculopathy, lumbar region; M25.551 Pain in right hip; M96.1 Postlaminectomy syndrome, not elsewhere classified
CPT/HCPCS: G0463

== ENCOUNTER → 2019-12-30 | Outpatient (CLI) | payer MEDICARE ==
--- NOTE | 2019-12-30 11:25 | PAIN ---
DATE OF SERVICE: 12/30/2019 PROGRESS NOTE FOR PAIN CLINIC DIAGNOSES: Lumbar radiculopathy with lumbar degenerative disk disease, lumbar spondylosis and post-lumbar laminectomy syndrome. HISTORY OF PRESENT ILLNESS: The patient is a 54-year-old female who returns for followup status post caudal epidural steroid injections as well as medication management with MS Contin and hydromorphone for breakthrough as well as gabapentin. The patient reports she is doing fairly well with this. If she is not on her feet for too long, she does have pretty good control of her pain, patient reports about 75%. The patient reports pain still in low back and left leg as it had been previously, worse with walking, standing, changing positions, again fairly well controlled with the medication and with several caudal epidural steroid injection as she has had. She had recently seen her spine surgeon, Dr. Guido who is recommending a transforaminal injection as well and we can make those arrangements for her. The patient reports her pain is an at 8 on a scale of 10 at its worst over the past week, 4 on average, 2 at its least and is a 4 today. The patient reports it is aching, sharp, dull, tight, shooting, cramping at times in the back, burning and tingling in the leg with radiating pain that can be severe with activity. The patient reports no new motor or sensory deficits, no bowel or bladder incontinence or other complaints. PHYSICAL EXAMINATION: VITAL SIGNS: The patient's blood pressure is 129/83, pulse 90, respirations 18, temperature 99.5 degrees Fahrenheit, weight is 223 pounds. GENERAL: The patient is awake, alert, oriented, appropriate, very pleasant demeanor. HEENT: Shows normocephalic, atraumatic. Extraocular movements intact and symmetrical. Oral cavity shows mucous membranes moist and pink. Dentition is intact. NECK: Shows anterior throat supple without palpable lymphadenopathy noted. Swallow reflex symmetrical. CHEST: Shows normal on inspection. Breath sounds are clear without rales, rhonchi or wheezes auscultated. HEART: Shows S1, S2 clear. No murmurs auscultated. ABDOMEN: Soft, nontender, nondistended. BACK: Shows spine grossly in the midline, slight flattening of lumbar lordotic curvature. Lumbar paraspinous muscle shows well-healed surgical scarring with palpation shows some moderate tenderness diffusely throughout the upper, middle and lower distribution of paraspinous muscles bilaterally. EXTREMITIES: Lower extremities show deep tendon reflexes 1+ in the patellar and tendo calcaneus tendons. Motor exam is approximately 4 on a scale of 5, but equal with dorsiflexion, extension and symmetrical. Peripheral pulses are 1+. No peripheral edema is noted. Options were discussed with the patient. The patient's old chart was reviewed as her current medication regimen updated. Current review of systems updated today as well and we will make arrangements for preauthorization for a left-sided transforaminal at L5-S1 injection as requested by her spine surgeon. The patient does have a clinical radiculopathy in the L5-S1 dermatomal distribution with recent MRI scan showing severe stenosis at the L5-S1 level progressed from previous exam and clinical radiculopathy in this distribution. The patient will be given medication refill MS Contin, hydromorphone and gabapentin, all with instructions, side effects to be aware of. The patient had appropriate K-TRACS reporting as well as appropriate urinalysis to date. We will make this a 2-month prescription with the patient will follow up after preauthorization for a left L5-S1 transforaminal injection at that time. THEODORE SORIANO MD DR: CAMPBELL/rony JOB#: [id number] / [id number]
== END | disposition home or self-care (01) ==
LOC: PNCL 10:05
PROVIDERS: ATTEND Anesthesiology
DX: M51.16 Intervertebral disc disorders with radiculopathy, lumbar region (principal); M48.061 Spinal stenosis, lumbar region without neurogenic claudication; Z88.8 Allergy status to other drugs, medicaments and biological substances; Z79.899 Other long term (current) drug therapy
CPT/HCPCS: G0463

== ENCOUNTER → 2020-01-09 | Outpatient (CLI) | payer MEDICARE ==
[~2020-01-09] MED LIST changes: +BUPIVACAINE MPF 0.25% 10 ML VIAL. ONE; +IOHEXOL 180 MG/ML 10 ML VIAL. ONE; +methylPREDNISolone ACETATE 80 MG/ML VIAL. ONE
--- NOTE | 2020-01-09 12:07 | PDOC ---
Progress Note - Pain Clinic Date of Service: DOS: DATE: 01/09/20 TIME: 12:00 Diagnosis: Dx: Lumbar radiculopathy with lumbar degenerative disc disease lumbar spondylosis and post lumbar laminectomy syndrome History or Present Illness: HPI: 54-year-old female returns follow-up status post medication management as well as caudal epidural steroid injections. Patient recently seen her neurosurgeon who is recommending a transforaminal injection on the left at L5-S1 she has significant symptoms there and they are trying to decide if she is eligible for a lumbar fusion. Patient reports still significant pain low back left leg posterior gluteus posterior thigh posterior calf and foot worse with walking and standing better with sitting and laying flat on her back with her knees bent. Patient culture pain is an 8 on scale of 10 at the worst on the past week for an average 1 dose least and is a 4 today patient which is are aching sharp dull shooting tingling burning cramping stabbing radiating becoming severe with weightbearing. Patient ports that wakes her from sleep about every 7 hour sometimes sporadically in between that time patient reports no new motor or sensory deficits no new bowel or bladder incontinence and no side effects with the medication. Physical Exam: VS: Blood pressure is 123/71 pulse 84 respirations 18 temperature 99.1 degrees urine and weight is 222 pounds PE: PHYSICAL EXAMINATION: GENERAL: The patient is awake, alert, oriented, appropriate, very pleasant d emeanor HEENT: Shows normocephalic, atraumatic. Extraocular movements are intact and symmetrical. Oral cavity: Mucous membranes moist and pink. Dentition is intact. NECK: Shows anterior throat supple without palpable lymphadenopathy noted. Swallow reflex symmetrical. CHEST: Shows normal on inspection. Breath sounds are clear bilaterally, no rales rhonchi or wheezes auscultated. HEART: Shows S1, S2 clear. No murmurs auscultated. ABDOMEN: Soft, nontender, nondistended. No palpable organomegaly is noted. No rebound or guarding demonstrated. BACK: Shows spine grossly in the midline. Normal-appearing cervical lordotic curvature. There is slightly increased thoracic kyphosis, some minor flattening of the lumbar lordotic curvature. Lumbar paraspinous muscles show symmetrical on inspection, on palpation shows some moderate tenderness diffusely throughout the upper, middle and lower distribution of the paraspinous muscles bilaterally and also into the lower thoracic paraspinous musculature, firm, but without specific trigger points, without radiation of pain. The patient has good rotational motion of the lumbar spine, both laterally as well as extension and flexion without significant difficulty. No tenderness over the spinous processes, sacrum or sacroiliac regions. EXTREMITIES: Lower extremities show deep tendon reflexes 1+ in the patellar and tendo calcaneus tendons. Motor exam is 4 on a scale of 5 with right dorsiflexion, extension, quadriceps and hamstring flexion and 4/5 on the left. Peripheral pulses are 1 posterior tibial. No peripheral edema is noted bilaterally. Lower extremities are warm and dry to touch, equal in color and appearance. SKIN: Shows warm and dry, good turgor. No edema. No sores, rashes or bruising throughout. Procedure: Procedure: Options discussed with the patient. Patient chart reviewed medication regimen updated current review of systems updated today as well. We will proceed with a left-sided L5-S1 transforaminal injection today with fluoroscopic guidance. Risks discussed including but not limited to bleeding infection possibility of epidural hematoma subsequent neurological compromise dural puncture headache spinal cord and or nerve damage side effects of steroid medication potential injection of the vertebral artery at that level and permanent ischemic damage as well as poor results regarding pain control exposure fluoroscopy. Patient understands wished to proceed. Patient return to clinic in approximate 2 weeks for follow-up was counseled as to return appointment activity level and side effects to be aware. Medication Injected: Med Injected: Under sterile prep and drape patient was placed in prone position using C-arm fluoroscopic guidance to identify the L5-S1 distribution oblique and slightly cephalad angled C arm. The left L5-S1 target was identified and using lidocaine for anesthetizing the skin 22-gauge Sebastien pencil point needle was then used to enter the skin and into the subcutaneous tissues using direct C-arm fluoroscopic guidance to guide the needle into the transforaminal aspect of the left L5-S1 vertebrae this was confirmed with lateral views showing the needle tip in the superior aspect of the paravertebral region. Aspiration was noted to be -1.5 cc of contrast was then injected with good spread both medially into the epidural space as well as laterally along the nerve root without uptake and without distribution and uptake on digital subtraction. This time solution containing 2 cc of 0.25% bupivacaine and 80 mg of Depo-Medrol was then injected. Needle was withdrawn and sterile bandage was applied. Patient tolerated procedure well had no complications Condition at Discharge: Condition at Discharge: Condition at discharge stable patient tolerated procedure well had no immediate complications. THEODORE SORIANO MD Jan 09, 2020 12:07
== END | disposition home or self-care (01) ==
LOC: PNCL 11:06
PROVIDERS: ATTEND Anesthesiology
DX: M51.16 Intervertebral disc disorders with radiculopathy, lumbar region (principal); M47.26 Other spondylosis with radiculopathy, lumbar region; M96.1 Postlaminectomy syndrome, not elsewhere classified; Z98.890 Other specified postprocedural states; Z88.8 Allergy status to other drugs, medicaments and biological substances; Z91.041 Radiographic dye allergy status
CPT/HCPCS: 64483; J1040; J3490; Q9965

== ENCOUNTER → 2020-01-23 | Outpatient (CLI) | payer MEDICARE ==
[~2020-01-23] MED LIST changes: +methylPREDNISolone ACETATE 40 MG/ML VIAL. ONE
--- NOTE | 2020-01-23 12:57 | PDOC ---
Progress Note - Pain Clinic Date of Service: DOS: DATE: 01/23/20 TIME: 12:52 Diagnosis: Dx: Lumbar radiculopathy with lumbar degenerative disc disease lumbar spondylosis and post lumbar laminectomy syndrome History or Present Illness: HPI: 55-year-old female returns follow-up status post medication management and left transforaminal injection L5-S1 level. Patient reports she did have some improve ment after the last injection about 40% with increased ability to walk further distances with her left lower extremity feeling better. Patient ports pain is still significant however rated as a 7 on scale 10 is worse over the past week for an average 1 its least is a 7 today patient reports radiating tingling burning cramping stabbing in the left leg itself posterior gluteus posterior thigh posterior calf to the foot involving most all the toes patient reported sharp alternating with dull in the back shooting in the leg and aching as well as stabbing patient reports no new motor or sensory deficits no new bowel or bladder incontinence or other complaints. Patient reports no specific side effects with her medication. We tried Zanaflex with her on her last visit at night and she reports she is doing much better and sleeping much better with the medication without any side effects or hangover effects. Physical Exam: VS: Blood pressure is 128/81 pulse 67 respirations 18 temperature 98.7 F height is 5 feet 5 inches weight is 222 pounds PE: PHYSICAL EXAMINATION: GENERAL: The patient is awake, alert, oriented, appropriate, very pleasant demeanor HEENT: Shows normocephalic, atraumatic. Extraocular movements are intact and symmetrical. Oral cavity: Mucous membranes moist and pink. NECK: Shows anterior throat supple without palpable lymphadenopathy noted. Swallow reflex symmetrical. CHEST: Shows normal on inspection. Breath sounds are clear bilaterally. HEART: Shows S1, S2 clear. No murmurs auscultated. ABDOMEN: Soft, nontender, nondistended, obese. No palpable organomegaly is n oted. No rebound or guarding demonstrated. BACK: Shows spine grossly in the midline. Normal-appearing cervical lordotic curvature. There is slightly increased thoracic kyphosis, some minor flattening of the lumbar lordotic curvature with well-healed surgical scarring noted. Lumbar paraspinous muscles show symmetrical on inspection, on palpation shows some moderate tenderness diffusely throughout the upper, middle and lower distribution of the paraspinous muscles bilaterally,firm and tender, but without specific trigger points, without radiation of pain. The patient has good rotational motion of the lumbar spine, both laterally as well as extension and flexion without significant difficulty. No tenderness over the spinous processes, sacrum or sacroiliac regions. EXTREMITIES: Lower extremities show deep tendon reflexes 1+ in the patellar and tendo calcaneus tendons. Motor exam is 4 on a scale of 5 with right dorsiflexion, extension, quadriceps and hamstring flexion and 4/5 on the left. Peripheral pulses are 1+ posterior tibial. No peripheral edema is noted bilaterally. Lower extremities are warm and dry to touch, equal in color and appearance. SKIN: Shows warm and dry, good turgor. No edema. No sores, rashes or bruising throughout. Procedure: Procedure: Options were discussed with the patient. Patient's old chart was reviewed as her current medication regimen updated current review of systems updated today as well. We will proceed with a second L5-S1 left transforaminal injection today with fluoroscopic guidance. Risks were discussed including but not limited to bleeding infection possibility of epidural hematoma subsequent neurological compromise dural puncture headache spinal cord and or nerve damage side effects steroid medication potential injection into the vertebral artery at that level and permanent ischemic damage as well as exposure to fluoroscopy and poor results regarding pain control. Patient understands wished to proceed patient return to clinic in approximate 2 weeks for follow-up was counseled as to return appointment activity level and side effects to be aware. Medication Injected: Med Injected: Under sterile prep and drape patient was placed in prone position using C-arm fluoroscopic guidance to identify the L5-S1 distribution oblique and slightly cephalad angled C arm. The left L5-S1 target was identified and using lidocaine for anesthetizing the skin 22-gauge Sebastien pencil point needle was then used to enter the skin and into the subcutaneous tissues using direct C-arm fluoroscopic guidance to guide the needle into the transforaminal aspect of the left L5-S1 vertebrae this was confirmed with lateral views showing the needle tip in the superior aspect of the paravertebral region. Aspiration was noted to be negative, -1.5 cc of contrast was then injected with good spread both medially into the epidural space as well as laterally along the nerve root without uptake and without distribution and uptake on digital subtraction. At this time, a solution containing 2 cc of 0.25% bupivacaine and 80 mg of Depo- Medrol was then injected. Needle was withdrawn and sterile bandage was applied. Patient tolerated procedure well had no immediate complications Condition at Discharge: Condition at Discharge: Condition at discharge stable patient tolerated procedure well had no immediate complications. THEODORE SORIANO MD Jan 23, 2020 12:57
== END | disposition home or self-care (01) ==
LOC: PNCL 11:05
PROVIDERS: ATTEND Anesthesiology
DX: M51.16 Intervertebral disc disorders with radiculopathy, lumbar region (principal); M47.896 Other spondylosis, lumbar region; Z88.8 Allergy status to other drugs, medicaments and biological substances; Z79.899 Other long term (current) drug therapy
CPT/HCPCS: 64483; J1040; J3490; Q9965; J1030

== ENCOUNTER → 2020-02-24 | Outpatient (CLI) | payer MEDICARE ==
[~2020-02-24] MED LIST changes: -BUPIVACAINE MPF 0.25% 10 ML VIAL. ONE; -IOHEXOL 180 MG/ML 10 ML VIAL. ONE; +TIZA4TAB8 PO; -methylPREDNISolone ACETATE 40 MG/ML VIAL. ONE; -methylPREDNISolone ACETATE 80 MG/ML VIAL. ONE
--- NOTE | 2020-02-24 11:59 | PDOC ---
Progress Note - Pain Clinic Date of Service: DOS: DATE: 02/24/20 TIME: 11:55 Diagnosis: Dx: Lumbar radiculopathy with lumbar degenerative disc disease lumbar spondylosis and post lumbar laminectomy syndrome Right hip joint pain with primary osteoarthritis History or Present Illness: HPI: 55-year-old female returns follow-up status post left L5-S1 transforaminal injection x2. Patient reports about 50+ percent decrease in the pain in her left leg and low back. Patient has also been doing physical therapy and water therapy which she feels is quite helpful especially when she is in the water the pain is almost gone. Patient reports she like to decrease the amount of morphine that she is taking and we will work with her on weaning her down as tolerated. Patient reports no side effects with the medication she is also taking hydromorphone Zanaflex gabapentin with good results and no significant side effects. Patient reports her pain as a 6 on a scale of 10 at the worst the past week for an average 1 its least is a 4 today. Patient describes in the back and the leg aching sharp dull tight shooting burning cramping the low back tingling in the leg and stabbing in the lower back as well. Physical Exam: VS: Blood pressure is 130/76 pulse 74 respirations 18 temperature 90.5 F height is 5 foot 4 inches weight is 219 pounds PE: PHYSICAL EXAMINATION: GENERAL: The patient is awake, alert, oriented, appropriate, very pleasant demeanor HEENT: Shows normocephalic, atraumatic. Extraocular movements are intact and symmetrical. NECK: Shows anterior throat supple without palpable lymphadenopathy noted. Swallow reflex symmetrical. CHEST: Shows normal on inspection. Breath sounds are clear bilaterally, distant but no rales rhonchi or wheezes auscultated. HEART: Shows S1, S2 clear. No murmurs auscultated. ABDOMEN: Soft, nontender, nondistended, obese. No palpable organomegaly is noted. No rebound or guarding demonstrated. BACK: Shows spine grossly in the midline. Normal-appearing cervical lordotic curvature. There is slightly increased thoracic kyphosis, some minor flattening of the lumbar lordotic curvature with well-healed surgical scarring noted. Lumbar paraspinous muscles show symmetrical on inspection, on palpation shows some moderate tenderness diffusely throughout the upper, middle and lower distribution of the paraspinous muscles bilaterally without trigger points, without radiation of pain. The patient has good rotational motion of the lumbar spine, both laterally as well as extension and flexion without significant difficulty. No tenderness over the spinous processes, sacrum or sacroiliac regions. EXTREMITIES: Lower extremities show deep tendon reflexes 1+ in the patellar and tendo calcaneus tendons. Motor exam is 4 on a scale of 5 with right dorsiflexion, extension, quadriceps and hamstring flexion and 4/5 on the left. Peripheral pulses are 1+ posterior tibial. No peripheral edema is noted bilaterally. Lower extremities are warm and dry to touch, equal in color and ap pearance. SKIN: Shows warm and dry, good turgor. No edema. No sores, rashes or bruising throughout. Procedure: Procedure: Discussed with the patient. Patient's old chart was reviewed as her current medication regimen updated current review of systems updated today as well. We will hold any further injections at this time as patient doing quite a bit better, encouraged her to continue with physical therapy and water therapy as scheduled. Patient given refill medications as she has had appropriate K tracts reporting as well as appropriate urinalyses to date for 2-month. We also decrease her morphine from 30 mg extended release to 15 mg extended release. We will try this for 1 month and if tolerated we will continue this. Patient was given instructions will side effects be aware of each of the medications and will follow-up in approximate 1 month as scheduled Medication Injected: Med Injected: None Condition at Discharge: Condition at Discharge: Condition at discharge is stable THEODORE SORIANO MD Feb 24, 2020 11:59
== END | disposition home or self-care (01) ==
LOC: PNCL 10:59
PROVIDERS: ATTEND Anesthesiology
DX: M51.16 Intervertebral disc disorders with radiculopathy, lumbar region (principal); M47.896 Other spondylosis, lumbar region; M16.11 Unilateral primary osteoarthritis, right hip; Z88.8 Allergy status to other drugs, medicaments and biological substances; Z79.899 Other long term (current) drug therapy
CPT/HCPCS: G0463

== ENCOUNTER → 2020-05-27 | Outpatient (CLI) | payer MEDICARE ==
[~2020-05-27] MED LIST changes: +METF500T16 PO
--- NOTE | 2020-05-27 13:44 | PDOC ---
Progress Note - Pain Clinic Date of Service: DOS: DATE: 05/27/20 TIME: 13:40 Diagnosis: Dx: Lumbar radiculopathy with lumbar degenerative disc disease lumbar spondylosis and post lumbar laminectomy syndrome Right hip joint pain with osteoarthritis History or Present Illness: HPI: 55-year-old female returns to follow-up status post medication management as well as left L5-S1 transforaminal injections. Patient reports did very well after last injection 50% improvement overall in the low back and left lower extremity. Patient reports doing well with medication management as well with MS Contin 15 mg with very sparing use of hydromorphone for breakthrough pain. Patient also doing well with gabapentin and Zanaflex. Reports overall about 70% improvement with the medications and without any specific side effects. Patient reports toe pain low back left lower extremity posterior gluteus posterior thigh posterior calf also on the right hip and groin worse with walking and standing putting all of her weight on the right side with stepping on curbs or stepping up on a ladder or a step. Patient reports no new motor or sensory deficits no new bowel or bladder incontinence or other complaints. Physical Exam: VS: Pressure is 114/75 pulse 71 respirations 18 temperature 90.7 gastroenteritis 5 feet 5 inches weight 215 pounds. PE: PHYSICAL EXAMINATION: GENERAL: The patient is awake, alert, oriented, appropriate, very pleasant demeanor HEENT: Shows normocephalic, atraumatic. Extraocular movements are intact and symmetrical. Oral cavity: Mucous membranes moist and pink. NECK: Shows anterior throat supple without palpable lymphadenopathy noted. Swallow reflex symmetrical. CHEST: Shows normal on inspection. Breath sounds are clear bilaterally, distant but no rales rhonchi or wheezes auscultated. HEART: Shows S1, S2 clear. No murmurs auscultated. ABDOMEN: Soft, nontender, nondistended, obese. No palpable organomegaly is noted. No rebound or guarding demonstrated. BACK: Shows spine grossly in the midline. Normal-appearing cervical lordotic curvature. There is slightly increased thoracic kyphosis, some minor flattening of the lumbar lordotic curvature. Well-healed surgical scarring is again noted. Lumbar paraspinous muscles show symmetrical on inspection, on palpation shows some moderate tenderness diffusely throughout the upper, middle and lower distribution of the paraspinous muscles without specific trigger points, without radiation of pain. The patient has good rotational motion of the lumbar spine, both laterally as well as extension and flexion without significant difficulty. No tenderness over the spinous processes, sacrum or sacroiliac regions. EXTREMITIES: Lower extremities show deep tendon reflexes 1+ in the patellar and tendo calcaneus tendons. Motor exam is 4 on a scale of 5 with right dorsiflexion, extension, quadriceps and hamstring flexion and 4/5 on the left. Peripheral pulses are 1+ posterior tibial. No peripheral edema is noted bilaterally. Lower extremities are warm and dry to touch, equal in color and appearance. SKIN: Shows warm and dry, good turgor. No edema. No sores, rashes or bruising throughout. Procedure: Procedure: Options were discussed with the patient. Patient chart reviews her current medication regimen updated current review of systems updated today as well. We will refill patient's medication is MS Contin at 15 mg as well as Zanaflex and gabapentin. Patient was given instructions well side effects beware of each of the medications. Patient has had appropriate K tracks report as well as appropriate urinalyses to date and we will make this a 2-month refill prescription patient will return to clinic in approximate 2 months or sooner if necessary. Medication Injected: Med Injected: None Condition at Discharge: Condition at Discharge: Condition at discharge is stable. THEODORE SORIANO MD May 27, 2020 13:44
== END | disposition home or self-care (01) ==
LOC: PNCL 13:00
PROVIDERS: ATTEND Anesthesiology
DX: M51.16 Intervertebral disc disorders with radiculopathy, lumbar region (principal); M47.26 Other spondylosis with radiculopathy, lumbar region; M16.11 Unilateral primary osteoarthritis, right hip; M96.1 Postlaminectomy syndrome, not elsewhere classified; Z98.890 Other specified postprocedural states; Z88.1 Allergy status to other antibiotic agents; Z91.041 Radiographic dye allergy status; Z88.8 Allergy status to other drugs, medicaments and biological substances
CPT/HCPCS: G0463

== ENCOUNTER → 2020-07-22 | Outpatient (CLI) | payer MEDICARE ==
[~2020-07-22] MED LIST changes: -NALD0.2T PO; +NALD0.2T3 PO
--- NOTE | 2020-07-22 13:41 | PDOC ---
Progress Note - Pain Clinic Date of Service: DOS: DATE: 07/22/20 TIME: 13:37 Diagnosis: Dx: Lumbar radiculopathy with lumbar degenerative disc disease lumbar spondylosis post lumbar laminectomy syndrome Right hip joint pain with osteoarthritis History or Present Illness: HPI: 55-year-old female returns follow-up status post transforaminal injections left L5 and S1 as well as medication management with oxycodone MS Contin gabapentin and Zanaflex. Patient reports he is doing very well with the medication regimen held recently she has been diagnosed with a kidney stone and is currently passing it with significant pain in the left low back and flank also pain the left lower extremity in the posterior gluteus posterior thigh posterior calf the patient reports is hard to determine whether this is solely from the lumbar spine or the kidney or both. Patient reports is aching sharp shooting cramping stabbing burning and tingling in the low back rating the leg severe and unbearable at times and again she is doing much better after the last injection was about 60% improved until about 2 weeks ago about the time that the kidney stone had started. Patient rates pain is a 10 on scale 10 is worse over the past week 7 on average 3 at its least and is a 7 today. Patient reports no new motor or sensory deficits no new bowel or bladder incontinence. Physical Exam: VS: Blood pressure is 123/74 pulse 75 respirations 18 temperature 98.8 F height 5 feet 5 inches weight 220 pounds PE: PHYSICAL EXAMINATION: GENERAL: The patient is awake, alert, oriented, appropriate, very pleasant demeanor HEENT: Shows normocephalic, atraumatic. Extraocular movements are intact and symmetrical. NECK: Shows anterior throat supple without palpable lymphadenopathy noted. Swallow reflex symmetrical. CHEST: Shows normal on inspection. Breath sounds are clear bilaterally, no rales or rhonchi. HEART: Shows S1, S2 clear. No murmurs auscultated. ABDOMEN: Soft, nontender, nondistended, obese. No palpable organomegaly is noted. BACK: Shows spine grossly in the midline. Normal-appearing cervical lordotic curvature. There is slightly increased thoracic kyphosis, some minor flattening of the lumbar lordotic curvature, with well-healed surgical scarring. Lumbar pa raspinous muscles show symmetrical on inspection, on palpation shows some moderate tenderness diffusely throughout the upper, middle and lower distribution of the paraspinous muscles without specific trigger points, without radiation of pain. The patient has good rotational motion of the lumbar spine, both laterally as well as extension and flexion without significant difficulty. EXTREMITIES: Lower extremities show deep tendon reflexes 1+ in the patellar and tendo calcaneus tendons. Motor exam is 4 on a scale of 5 with right dorsiflexion, extension, quadriceps and hamstring flexion and 4/5 on the left. Peripheral pulses are 1+ posterior tibial. No peripheral edema is noted bilaterally. Lower extremities are warm and dry to touch, equal in color and appearance. SKIN: Shows warm and dry, good turgor. No edema. No sores, rashes or bruising throughout. Procedure: Procedure: Options were discussed with the patient. Patient will chart reviews her current medication regimen updated current review of systems updated today as well. We will refill patient's medication MS Contin as well as gabapentin and Zanaflex, patient has prescription still of oxycodone and does not need refill on this today. Patient was given instructions well side effects beware of these of the medications. She has had appropriate K tracks report as well as appropriate urinalyses to date and we will make this a 2-month refill. Patient will return to clinic in approximate 2 months or sooner if necessary. We did discuss that if the radicular pain persists after the kidney stone is passed that we may repeat transforaminal injection at the left L5-S1 level. Medication Injected: Med Injected: None Condition at Discharge: Condition at Discharge: Condition at discharge is stable. THEODORE SORIANO MD Jul 22, 2020 13:41
== END | disposition home or self-care (01) ==
LOC: PNCL 13:11
PROVIDERS: ATTEND Anesthesiology
DX: M51.16 Intervertebral disc disorders with radiculopathy, lumbar region (principal); M47.816 Spondylosis without myelopathy or radiculopathy, lumbar region; M96.1 Postlaminectomy syndrome, not elsewhere classified; M16.11 Unilateral primary osteoarthritis, right hip; Z79.899 Other long term (current) drug therapy; Z98.890 Other specified postprocedural states; Z88.1 Allergy status to other antibiotic agents; Z91.041 Radiographic dye allergy status; Z88.8 Allergy status to other drugs, medicaments and biological substances
CPT/HCPCS: G0463

== ENCOUNTER → 2020-09-04 | Outpatient (CLI) | payer MEDICARE ==
[~2020-09-04] MED LIST changes: +BUPIVACAINE MPF 0.25% 10 ML VIAL. ONE; +IOHEXOL 180 MG/ML 10 ML VIAL. ONE; +methylPREDNISolone ACETATE 80 MG/ML VIAL. ONE
--- NOTE | 2020-09-04 10:30 | PDOC ---
Progress Note - Pain Clinic Date of Service: DOS: DATE: 09/04/20 TIME: 10:27 Diagnosis: Dx: Lumbar radiculopathy with lumbar degenerative disease and lumbar spondylosis with post lumbar laminectomy syndrome Right hip joint pain with osteoarthritis History or Present Illness: HPI: 55-year-old female returns follow-up status post transforaminal injections as well as caudal epidural steroid ejections and medication management with MS Contin and gabapentin and hydromorphone. Patient reports he is doing fairly well but the left leg coming more painful over the last month or so with pain rating the posterior gluteus posterior thigh posterior calf into the foot worse with walking standing weightbearing change positions beginning to awaken her from sleep once again patient reports a 10 on scale 10 is worse over the past week 6 on average 3 at its least is a 6 today patient describes aching shooting stabbing cramping tingling and burning radiating from the back into the left leg can be constant and severe unbearable at times. Patient reports no new motor or sensory deficits no new bowel or bladder incontinence she did have some kidney stones removed over the past month or so which been remarkably painful as well. 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 Physical Exam: VS: Blood pressure 126/81 pulse 75 respirations 18 temperature 98.5 F weight is 215 pounds PE: PHYSICAL EXAMINATION: GENERAL: The patient is awake, alert, oriented, appropriate, very pleasant demeanor HEENT: Shows normocephalic, atraumatic. Extraocular movements are intact and symmetrical. Oral cavity: Mucous membranes moist and pink. Dentition is intact. NECK: Shows anterior throat supple without palpable lymphadenopathy noted. Swallow reflex symmetrical. CHEST: Shows normal on inspection. Breath sounds are clear bilaterally, no rales or rhonchi bilaterally. HEART: Shows S1, S2 clear. No murmurs auscultated. ABDOMEN: Soft, nontender, nondistended, obese. No palpable organomegaly is noted. BACK: Shows spine grossly in the midline. Normal-appearing cervical lordotic curvature. There is slightly increased thoracic kyphosis, some minor flattening of the lumbar lordotic curvature. Well-healed surgical scars noted in lumbar distribution. Lumbar paraspinous muscles show symmetrical on inspection, on palpation shows some moderate tenderness diffusely throughout the upper, middle and lower distribution of the paraspinous muscles without specific trigger points, without radiation of pain. The patient has good rotational motion of the lumbar spine, both laterally as well as extension and flexion without significant difficulty. No tenderness over the spinous processes, sacrum or sacroiliac regions. EXTREMITIES: Lower extremities show deep tendon reflexes 1 in the patellar and tendo calcaneus tendons. Motor exam is 4 on a scale of 5 with right dorsiflexion, extension, quadriceps and hamstring flexion and 4/5 on the left. Peripheral pulses are 1 posterior tibial. No peripheral edema is noted bilaterally. Lower extremities are warm and dry to touch, equal in color and appearance. SKIN: Shows warm and dry, good turgor. No edema. No sores, rashes or bruising throughout. Procedure: Procedure: Options discussed with the patient. Patient chart reviews her current medication regimen updated current review of systems updated today as well. We will proceed with a left transforaminal epidural injection at the L5-S1 level with fluoroscopic guidance. Risks were discussed including but not limited to: Bleeding, infection, possibility of epidural hematoma and subsequent neurological compromise, dural puncture, headaches, spinal cord and/or nerve damage, potential injection into the vertebral artery at that level and permanent ischemic damage, side effects of steroid medication, and poor results regarding pain control. Patient understands and wished to proceed. Patient will return to clinic in approximate 4 weeks for follow-up, was counseled as return appointment activity level and side effects be aware of. Also will refill patient's hydromorphone as she reports she has been using more this with her kidney stones lately and has had appropriate K tracts reporting as well as appropriate urinalyses to date. Medication Injected: Med Injected: Under sterile prep and drape patient was placed in prone position using C-arm fluoroscopic guidance to identify the L5-S1 distribution oblique and slightly cephalad angled C arm. The left L5-S1 target was identified and using lidocaine for anesthetizing the skin 22-gauge Sebastien pencil point needle was then used to enter the skin and into the subcutaneous tissues using direct C-arm fluoroscopic guidance to guide the needle into the transforaminal aspect of the left L5-S1 vertebrae this was confirmed with lateral views showing the needle tip in the superior aspect of the paravertebral region. Aspiration was noted to be negative, -1.5 cc of contrast was then injected with good spread both medially into the epidural space as well as laterally along the nerve root without uptake and without distribution and uptake on digital subtraction. At this time, a solution containing 2 cc of 0.25% bupivacaine and 80 mg of Depo- Medrol was then injected. Needle was withdrawn and sterile bandage was applied. Patient tolerated procedure well had no immediate complications Condition at Discharge: Condition at Discharge: Condition at discharge stable, patient already procedure well and had no complications. THEODORE SORIANO MD Sep 04, 2020 10:30
== END | disposition home or self-care (01) ==
LOC: PNCL 09:16
PROVIDERS: ATTEND Anesthesiology
DX: M51.16 Intervertebral disc disorders with radiculopathy, lumbar region (principal); M47.26 Other spondylosis with radiculopathy, lumbar region; M16.11 Unilateral primary osteoarthritis, right hip; M96.1 Postlaminectomy syndrome, not elsewhere classified; Z79.84 Long term (current) use of oral hypoglycemic drugs; Z79.899 Other long term (current) drug therapy; Z88.1 Allergy status to other antibiotic agents; Z91.041 Radiographic dye allergy status; Z88.8 Allergy status to other drugs, medicaments and biological substances
CPT/HCPCS: 64483; J1040; J3490; Q9965

== ENCOUNTER → 2020-09-30 | Outpatient (CLI) | payer MEDICARE ==
[~2020-09-30] MED LIST changes: -BUPIVACAINE MPF 0.25% 10 ML VIAL. ONE; -IOHEXOL 180 MG/ML 10 ML VIAL. ONE; -methylPREDNISolone ACETATE 80 MG/ML VIAL. ONE
--- NOTE | 2020-09-30 13:39 | PDOC ---
Progress Note - Pain Clinic Date of Service: DOS: DATE: 09/30/20 TIME: 13:34 Diagnosis: Dx: Lumbar radiculopathy with lumbar degenerative disease lumbar spondylosis and post lumbar laminectomy syndrome Right hip joint pain with osteoarthritis History or Present Illness: HPI: 55-year-old female returns to follow-up status post left L5-S1 transforaminal injection most recently on September 04, 2020. Patient reports she did very well about 60% improvement in the leg and low back on the left side. Patient reports she is doing very well with increased activity with greater ease and comfort sleeping better at night generally does not awaken her from sleep. Better with sitting down as well but more painful still with walking and standing. Patient rates her pain as an 8 on scale 10 is worse over the past week 5 on average 1 at its least is a 5 today patient was aching and tight sometimes shooting in the left lower extremity posterior gluteus posterior thigh posterior calf to the foot tingling and burning the leg as well some cramping in the low back patient reports it can be severe at times but most recently is been much better after her last injection. Patient reports no new motor or sensory deficits no new bowel or bladder incontinence or other complaints. Patient taking MS Contin as well as hydromorphone for breakthrough pain reports no significant side effects and about 75% improvement with the medication alone. Physical Exam: VS: Blood pressure is 141/61 pulse 63 respirations 18 temperature 98.5 F height is 5 feet 5 inches weight is 212 pounds PE: PHYSICAL EXAMINATION: GENERAL: The patient is awake, alert, oriented, appropriate, very pleasant demeanor HEENT: Shows normocephalic, atraumatic. Extraocular movements are intact and symmetrical. Oral cavity: Mucous membranes moist and pink. Dentition is intact. NECK: Shows anterior throat supple without palpable lymphadenopathy noted. Swallow reflex symmetrical. CHEST: Shows normal on inspection. Breath sounds are clear bilaterally, no rales rhonchi or wheezes auscultated. HEART: Shows S1, S2 clear. No murmurs auscultated. ABDOMEN: Soft, nontender, nondistended, obese. No palpable organomegaly is noted. No rebound or guarding demonstrated. BACK: Shows spine grossly in the midline. Normal-appearing cervical lordotic curvature. There is increased thoracic kyphosis, some flattening of the lumbar lordotic curvature, well-healed surgical scarring in the. Lumbar paraspinous muscles show symmetrical on inspection, on palpation shows some moderate tenderness diffusely throughout the upper, middle and lower distribution of the paraspinous muscles without specific trigger points, without radiation of pain. The patient has good rotational motion of the lumbar spine, both laterally as well as extension and flexion without significant difficulty. EXTREMITIES: Lower extremities show deep tendon reflexes 1+ in the patellar and tendo calcaneus tendons. Motor exam is 4 on a scale of 5 with right dorsiflexion, extension, quadriceps and hamstring flexion and 4/5 on the left. Peripheral pulses are 1+ posterior tibial. No peripheral edema is noted bilaterally. Lower extremities are warm and dry. SKIN: Shows warm and dry, good turgor. No edema. No sores, rashes or bruising throughout. Procedure: Procedure: Options discussed with patient. Patient chart reviews her current medication regimen updated current review of systems updated today as well. Patient has had appropriate K tracks report as well as appropriate urinalyses to date and we will refill patient's medication, morphine extended release, for 2-month period. Patient is given instructions well side effects aware with the medications and will follow up in approximate 2 months or sooner as necessary. Medication Injected: Med Injected: None Condition at Discharge: Condition at Discharge: Condition at discharge stable. THEODORE SORIANO MD September 30, 2020 13:39
== END | disposition home or self-care (01) ==
LOC: PNCL 13:00
PROVIDERS: ATTEND Anesthesiology
DX: M51.16 Intervertebral disc disorders with radiculopathy, lumbar region (principal); M47.26 Other spondylosis with radiculopathy, lumbar region; M96.1 Postlaminectomy syndrome, not elsewhere classified; M16.11 Unilateral primary osteoarthritis, right hip; Z79.899 Other long term (current) drug therapy; Z88.1 Allergy status to other antibiotic agents; Z91.041 Radiographic dye allergy status; Z88.8 Allergy status to other drugs, medicaments and biological substances
CPT/HCPCS: G0463

== ENCOUNTER → 2020-12-08 | Outpatient (CLI) | payer MEDICARE ==
[~2020-12-08] MED LIST changes: +MORP15TA80 PO
--- NOTE | 2020-12-08 13:54 | PDOC ---
Progress Note - Pain Clinic Date of Service: DOS: DATE: 12/08/20 TIME: 13:50 Diagnosis: Dx: Lumbar radiculopathy with lumbar degenerative disease lumbar spondylosis and lumbar postlaminectomy syndrome Right hip joint pain with osteoarthritis History or Present Illness: HPI: 55-year-old female returns for follow-up status post medication management with morphine sulfate hydromorphone for breakthrough pain also taking gabapentin and Zanaflex. Patient reports she is doing fairly well however had a recent bout of pancreatitis and was hospitalized for about 3 weeks [facility] is now better with resolution of the pancreatitis and did lose some weight with this as well but reports still significant pain low back left lower extremity however it is fairly well controlled with her current medication regimen and with activity. Patient reports is much better with sitting and resting if she gets enough numbness in her left leg she will sit and rest for just a few minutes until it goes away. Patient reports about a 60 to 70% improvement with the medication without any specific side effects. Patient doing some pool therapy on her own as well patient describes pain in the low back and left leg is aching and sharp dull tight shooting tingling burning can be cramping and stabbing and radiating patient reports is a 7 on scale 10 is worse over the past week for an average 1 at its least is a 4 today. Patient reports having some difficulty with sleeping is when she lays with her legs flat she has some increased pain in the pelvis itself. Patient reports no motor or sensory deficits however. Patient did have an ERCP while she was hospitalized with a stent placement for pancreatitis. Physical Exam: VS: Blood pressure 112/63 pulse 73 respirations 18 temperature 98.8 Ms. Fahrenheit height is 5 feet 5 inches weight is 200 pounds PE: PHYSICAL EXAMINATION: GENERAL: The patient is awake, alert, oriented, appropriate, very pleasant in demeanor. HEENT: Shows normocephalic, atraumatic. Extraocular movements are intact and symmetrical. Oral cavity: Mucous membranes moist and pink. Dentition is in tact. NECK: Shows anterior throat supple without palpable lymphadenopathy noted. Swallow reflex symmetrical. CHEST: Shows normal on inspection. Breath sounds are clear bilaterally. HEART: Shows S1, S2 clear. No murmurs auscultated. ABDOMEN: Soft, nontender, nondistended, obese. BACK: Shows spine grossly in the midline. Normal-appearing cervical lordotic curvature. There is slightly increased thoracic kyphosis, some minor flattening of the lumbar lordotic curvature. Lumbar paraspinous muscles show symmetrical on inspection, on palpation shows some moderate tenderness diffusely throughout the upper, middle and lower distribution of the paraspinous muscles without specific trigger points, without radiation of pain. The patient has good rotational motion of the lumbar spine, both laterally as well as extension and flexion without significant difficulty. EXTREMITIES: Lower extremities show deep tendon reflexes 1+ in the patellar and tendo calcaneus tendons. Motor exam is 4 on a scale of 5 with right dorsif lexion, extension, quadriceps and hamstring flexion and 4/5 on the left. Peripheral pulses are 1+ posterior tibial. No peripheral edema is noted bilaterally. Lower extremities are warm and dry to touch, equal in color and appearance. SKIN: Shows warm and dry, good turgor. No edema. No sores, rashes or bruising throughout. Procedure: Procedure: Options were discussed with the patient. Patient chart reviews her current medication regimen updated current review of systems updated today as well. We will refill patient's MS Contin as she has extra hydromorphone at home when she is not needed recently. Patient given instructions well side effects beware with the medication. Also refill patient's gabapentin as well as Zanaflex. Patient given instructions well side effects aware with these medications as well. Patient to follow-up in the clinic in approximate 4 weeks as scheduled. Patient has had appropriate K tracks report as well as appropriate urinalyses to date we will make this a 1 month refill with a lot of electronic prescription for the controlled substances. Medication Injected: Med Injected: None Condition at Discharge: Condition at Discharge: Condition at discharge is stable. THEODORE SORIANO MD Dec 08, 2020 13:54
== END | disposition home or self-care (01) ==
LOC: PNCL 13:05
PROVIDERS: ATTEND Anesthesiology
DX: M51.16 Intervertebral disc disorders with radiculopathy, lumbar region (principal); M96.1 Postlaminectomy syndrome, not elsewhere classified; M16.11 Unilateral primary osteoarthritis, right hip; Z79.899 Other long term (current) drug therapy; Z88.1 Allergy status to other antibiotic agents; Z88.8 Allergy status to other drugs, medicaments and biological substances
CPT/HCPCS: 99212; G0463

== ENCOUNTER → 2021-02-02 | Outpatient (CLI) | payer MEDICARE ==
--- NOTE | 2021-02-02 13:41 | PDOC ---
Progress Note - Pain Clinic Date of Service: DOS: DATE: 02/02/21 TIME: 13:38 Diagnosis: Dx: Lumbar radiculopathy with lumbar degenerative disc disease and lumbar spondylosis with post lumbar laminectomy syndrome Right hip joint pain with osteoarthritis History or Present Illness: HPI: 56-year-old female returns for follow-up status post transforaminal injection left L5-S1 last performed on September 04, 2020. Patient did very well with about 75% improvement patient reports pain is still there but is only intermittent and is not persistent patient reports in the left leg posterior gluteus posterior thigh posterior calf mostly in the mornings but during the day it is not as bothersome patient reports her pain is 8 on scale 10 is worse over the past week 3 on average 1 its least is a 3 today patient describes as aching and dull tingling burning cramping and stabbing radiating to left lower extremity again f airly well controlled at this time patient reports doing well with her medications no side effects these were E prescribed for her last week MS Contin and hydromorphone patient also taking Zanaflex and gabapentin reports overall about a 77 5% improvement without significant side effects. Patient reports no new bowel or bladder incontinence no motor or sensory deficit Physical Exam: VS: Blood pressure is 113/70 pulse 79 respirations 18 temperature 99.2 F height 5 feet 4 inches weight is 194 pounds PE: PHYSICAL EXAMINATION: GENERAL: The patient is awake, alert, oriented, appropriate, very pleasant demeanor HEENT: Shows normocephalic, atraumatic. Extraocular movements are intact and symmetrical. Oral cavity: Mucous membranes moist and pink. Dentition is intact. NECK: Shows anterior throat supple without palpable lymphadenopathy noted. Swallow reflex symmetrical. CHEST: Shows normal on inspection. Breath sounds are clear bilaterally, distant but no rales or rhonchi. HEART: Shows S1, S2 clear. No murmurs auscultated. ABDOMEN: Soft, nontender, nondistended, obese. No palpable organomegaly is noted. BACK: Shows spine grossly in the midline. Normal-appearing cervical lordotic curvature. There is slightly increased thoracic kyphosis, some minor flattening of the lumbar lordotic curvature. Lumbar paraspinous muscles show symmetrical on inspection, on palpation shows some moderate tenderness diffusely throughout the upper, middle and lower distribution of the paraspinous muscles without specific trigger points, without radiation of pain. The patient has good rotational motion of the lumbar spine, both laterally as well as extension and flexion without significant difficulty. No tenderness over the spinous processes, sacrum or sacroiliac regions. EXTREMITIES: Lower extremities show deep tendon reflexes 1+ in the patellar and tendo calcaneus tendons. Motor exam is 4 on a scale of 5 with right dorsiflexion, extension, quadriceps and hamstring flexion and 4/5 on the left. Peripheral pulses are 1+ posterior tibial. No peripheral edema is noted bilaterally. Lower extremities are warm and dry to touch, equal in color and appearance. SKIN: Shows warm and dry, good turgor. No edema. No sores, rashes or bruising throughout. Procedure: Procedure: Options were discussed with the patient. Patient's old chart was reviewed as her current medication regimen updated current review of systems updated today as well. Patient with recent electronic prescribing refill via telemedicine visit last week patient will continue with current medications as she has had appropriate K tracks report as well as appropriate urinalyses to date we will have her return in approximately 6 weeks or sooner if necessary. Medication Injected: Med Injected: None Condition at Discharge: Condition at Discharge: Condition at discharge is stable. THEODORE SORIANO MD Feb 02, 2021 13:41
== END | disposition home or self-care (01) ==
LOC: PNCL 13:03
PROVIDERS: ATTEND Anesthesiology
DX: M51.16 Intervertebral disc disorders with radiculopathy, lumbar region (principal); M47.26 Other spondylosis with radiculopathy, lumbar region; M96.1 Postlaminectomy syndrome, not elsewhere classified; M16.11 Unilateral primary osteoarthritis, right hip; Z79.84 Long term (current) use of oral hypoglycemic drugs; Z79.899 Other long term (current) drug therapy; Z98.890 Other specified postprocedural states; Z88.1 Allergy status to other antibiotic agents; Z88.8 Allergy status to other drugs, medicaments and biological substances
CPT/HCPCS: 99212; G0463

== ENCOUNTER → 2021-03-01 | Outpatient (CLI) | payer MEDICARE ==
[~2021-03-01] MED LIST changes: -DULO60CA6 PO; +DULO60CA7 PO; +HYDR4TAB45 PO
--- NOTE | 2021-03-01 15:34 | PDOC ---
Progress Note - Pain Clinic Date of Service: DOS: DATE: 03/01/21 TIME: 15:33 Diagnosis: Dx: Lumbar radiculopathy with lumbar degenerative disease lumbar spondylosis with lumbar postlaminectomy syndrome Left hip joint pain with osteoarthritis History or Present Illness: HPI: Telemedicine visit today with patient's identity verified with date of as well as full name. Total time spent: 11 minutes 56-year-old female via telemedicine visit today requesting a refill of morphine MS Contin 15 mg. Patient has been on very stable regimen with this and reports that she is doing fairly well she had some increased activity as they had a family member and she had been traveling a bit more than normal in the last week or so the pain is been increased but now is getting better as she is back home and is able to get off of her feet a little bit more. Patient reports no side effects with the medication reports about 75 to 80% improvement overall with the medications. Patient has had appropriate K tracks portables appropriate urinalyses to date. We will refill patient's medication via electronic prescription, patient was given instructions well side effects beware with the medication and will follow up in approximate 4 weeks as scheduled. Physical Exam: PE: THEODORE SORIANO MD Mar 01, 2021 15:34
--- NOTE | 2021-03-01 16:04 | NUR ---
Pt called for refill of MS Jeremy for her chronic pain issues. Pt states no untoward effects from the meds. Verified pts. pharmacy and her next appt of Mar 16. States her pain level was much higher as she had to travel out of [facility] Today it is down to a 4/10. No c/o constipation. Heats helps a great deal. Joshua Jarrell RN
== END | disposition home or self-care (01) ==
LOC: PNCL 14:20
PROVIDERS: ATTEND Anesthesiology
DX: M51.16 Intervertebral disc disorders with radiculopathy, lumbar region (principal); M47.26 Other spondylosis with radiculopathy, lumbar region; M96.1 Postlaminectomy syndrome, not elsewhere classified; M16.12 Unilateral primary osteoarthritis, left hip; Z79.899 Other long term (current) drug therapy; Z88.8 Allergy status to other drugs, medicaments and biological substances
CPT/HCPCS: G0463

== ENCOUNTER → 2021-03-16 | Outpatient (CLI) | payer MEDICARE ==
--- NOTE | 2021-03-16 14:01 | PDOC ---
Progress Note - Pain Clinic Date of Service: DOS: DATE: 03/16/21 TIME: 13:57 Diagnosis: Dx: Lumbar radiculopathy with lumbar degenerative disease and lumbar spondylosis with lumbar postlaminectomy syndrome Right hip joint pain with osteoarthritis History or Present Illness: HPI: 56-year-old female returns for follow-up status post left transforaminal epidural steroid injections as well as medication management with MS Contin and hydromorphone. Patient reports doing very well with the medication regimen her leg however on the left side is becoming much more noticeable and painful with radiating pain and radicular fashion in the posterior gluteus posterior thigh posterior calf into the ankle and foot on the left side worse with walking standing even sitting for more than for 5 minutes the pain begins to become unbearable patient reports worse with standing or standing 1 position as well as walking or changing positions. Patient reports he does fairly well with the medication management however is not covering the pain significantly and she is beginning to have some fatigability with the left leg as well causing it to be more difficult with ambulation. Patient reports it wakes her from sleep frequently over the last few weeks rates the pain is a 10 on scale 10 is worst 7 on average 5 its least is a 7 today. Patient reports no bowel or bladder incontinence. Physical Exam: VS: Blood pressure is 117/66 pulse 63 respirations are 16 temperature is 98.3 F height is 5 feet 5 inches weight is 191 pounds PE: PHYSICAL EXAMINATION: GENERAL: The patient is awake, alert, oriented, appropriate, very pleasant in demeanor HEENT: Shows normocephalic, atraumatic. Extraocular movements are intact and symmetrical. Oral cavity: Mucous membranes moist and pink. Dentition is intact. NECK: Shows anterior throat supple without palpable lymphadenopathy noted. Swallow reflex symmetrical. CHEST: Shows normal on inspection. Breath sounds are clear bilaterally, no rales rhonchi or wheezes auscultated. HEART: Shows S1, S2 clear. No murmurs auscultated. ABDOMEN: Soft, nontender, nondistended, obese. No palpable organomegaly is noted. BACK: Shows spine grossly in the midline. Normal-appearing cervical lordotic curvature. There is slightly increased thoracic kyphosis, some minor flattening of the lumbar lordotic curvature, with well-healed surgical scar noted. Lumbar paraspinous muscles show symmetrical on inspection, on palpation shows some moderate tenderness diffusely throughout the upper, middle and lower distribution of the paraspinous muscles without specific trigger points, without radiation of pain. The patient has good rotational motion of the lumbar spine, both laterally as well as extension and flexion without significant difficulty. No tenderness over the spinous processes, sacrum or sacroiliac regions. EXTREMITIES: Lower extremities show deep tendon reflexes 1+ in the patellar and tendo calcaneus tendons. Motor exam is 4 on a scale of 5 with right dorsiflexion, extension, quadriceps and hamstring flexion and 4/5 on the left. Peripheral pulses are 1 posterior tibial. No peripheral edema is noted bilaterally. Lower extremities are warm and dry to touch, equal in color and appearance. SKIN: Shows warm and dry, good turgor. No edema. No sores, rashes or bruising throughout. Procedure: Procedure: Options were discussed with the patient. Patient chart reviews her current medication regimen updated current review of systems updated today as well. We will refill patient's medication both MS Contin and hydromorphone with instructions side effects beware discussed with the each. Patient has had appropriate K tracks portables appropriate urinalyses to date we will make this a 1 month refill prescription. Patient will follow up in approximately 1 week and plan on left lumbar transforaminal injection at that time. Medication Injected: Med Injected: None Condition at Discharge: Condition at Discharge: Condition at discharge is stable. THEODORE SORIANO MD Mar 16, 2021 14:01
== END | disposition home or self-care (01) ==
LOC: PNCL 13:33
PROVIDERS: ATTEND Anesthesiology
DX: M51.16 Intervertebral disc disorders with radiculopathy, lumbar region (principal); M47.26 Other spondylosis with radiculopathy, lumbar region; M96.1 Postlaminectomy syndrome, not elsewhere classified; M16.11 Unilateral primary osteoarthritis, right hip; Z79.899 Other long term (current) drug therapy; Z98.890 Other specified postprocedural states; Z88.8 Allergy status to other drugs, medicaments and biological substances; Z91.041 Radiographic dye allergy status
CPT/HCPCS: 99212; G0463

== ENCOUNTER → 2021-03-18 | Outpatient (CLI) | payer MEDICARE ==
[~2021-03-18] MED LIST changes: +BUPIVACAINE MPF 0.25% 10 ML VIAL. ONE; +IOHEXOL 180 MG/ML 10 ML VIAL. ONE; +methylPREDNISolone ACETATE 80 MG/ML VIAL. ONE
--- NOTE | 2021-03-18 12:14 | PDOC ---
Progress Note - Pain Clinic Date of Service: DOS: DATE: 03/18/21 TIME: 12:08 Diagnosis: Dx: Lumbar radiculopathy with lumbar degenerative disc disease and lumbar spondylosis with lumbar postlaminectomy syndrome Right hip joint pain with osteoarthritis History or Present Illness: HPI: 56-year-old female returns for follow-up with the pain in the low back left lower extremity also with medication management doing very well with a very stable regimen with the MS Contin and hydromorphone. Patient reports pain in her left leg is becoming more significant and debilitating we have difficulty ambulating with her left leg pain rating posterior gluteus on the left side of the posterior calf posterior thigh and posterior foot as well on the left patient reports a tingling burning cramping stabbing aching sharp and dull in the back radiating shooting the leg radiating constant in the back as well is severe and unbearable with weightbearing. Patient has been using a cane to ambulate. Patient rates her pain a 10 on scale 10 is worse over the past week 8 on average 6 at its least and is an 8 today reports no new motor or sensory deficits no bowel or bladder incontinence. Physical Exam: VS: Blood pressure is 141/70 pulse 66 respirations 18 temperature is 98.5 F height is 5 feet 1 inches weight is 189 pounds PE: PHYSICAL EXAMINATION: GENERAL: The patient is awake, alert, oriented, appropriate, very pleasant in demeanor HEENT: Shows normocephalic, atraumatic. Extraocular movements are intact and symmetrical. Oral cavity: Mucous membranes moist and pink. Dentition is intact. NECK: Shows anterior throat supple without palpable lymphadenopathy noted. Swallow reflex symmetrical. CHEST: Shows normal on inspection. Breath sounds are clear bilaterally, distant but no rales or rhonchi. HEART: Shows S1, S2 clear. No murmurs auscultated. ABDOMEN: Soft, nontender, nondistended, obese. No palpable organomegaly is noted. BACK: Shows spine grossly in the midline. Normal-appearing cervical lordotic curvature. There is slightly increased thoracic kyphosis, some minor flattening of the lumbar lordotic curvature, with well-healed midline surgical scar. Lumbar paraspinous muscles show symmetrical on inspection, on palpation shows some moderate tenderness diffusely throughout the upper, middle and lower distribution of the paraspinous muscles without specific trigger points, without radiation of pain. The patient has good rotational motion of the lumbar spine, both laterally as well as extension and flexion. EXTREMITIES: Lower extremities show deep tendon reflexes 1 in the patellar and tendo calcaneus tendons. Motor exam is 4 on a scale of 5 with right dorsiflexion, extension, quadriceps and hamstring flexion and 4/5 on the left. Peripheral pulses are warm posterior tibial. No peripheral edema is noted bilaterally. Lower extremities are warm and dry to touch, equal in color and appearance. SKIN: Shows warm and dry, good turgor. No edema. No sores, rashes or bruising throughout. Procedure: Procedure: Options were discussed with patient. Patient chart reviews her current medication regimen updated current review of systems updated today as well. We will proceed with a left L5-S1 transforaminal epidural steroid injection today with fluoroscopic guidance. Risks were discussed including but not limited to: Bleeding, infection, possibility of epidural hematoma and subsequent neurological compromise, dural puncture, headaches, spinal cord and/or nerve damage, potential injection of the vertebral artery at that level and permanent ischemic damage, side effects of steroid medication, and poor results regarding pain control. Patient understands and wished to proceed. Patient return to clinic in approximate 2 weeks for follow-up, was counseled as return appointment, typical, and side effect to be aware of. Medication Injected: Med Injected: Under sterile prep and drape patient was placed in prone position using C-arm fluoroscopic guidance to identify the L5-S1 distribution oblique and slightly cephalad angled C arm. The left L5-S1 target was identified and using lidocaine for anesthetizing the skin 22-gauge Sebastien pencil point needle was then used to enter the skin and into the subcutaneous tissues using direct C-arm fluoroscopic guidance to guide the needle into the transforaminal aspect of the left L5-S1 vertebrae this was confirmed with lateral views showing the needle tip in the superior aspect of the paravertebral region. Aspiration was noted to be negative, -1.5 cc of contrast was then injected with good spread both medially into the epidural space as well as laterally along the nerve root without uptake and without distribution and uptake on digital subtraction. At this time, a solution containing 2 cc of 0.25% bupivacaine and 80 mg of Depo- Medrol was then injected. Needle was withdrawn and sterile bandage was applied. Patient tolerated procedure well had no immediate complications Condition at Discharge: Condition at Discharge: Condition at discharge stable, patient tolerated procedure well and had no complications. THEODORE SORIANO MD Mar 18, 2021 12:14
--- NOTE | 2021-03-18 12:15 | PDOC4 ---
Procedure Note: ICD 10 Code: ICD 10 Code: M54.17 M51.87 M 96.1 Procedure Note: Patient was consented for left L5-S1 transforaminal epidural steroid injection with fluoroscopic guidance. Risks were discussed including but not limited to: Bleeding, infection, possibility of epidural hematoma and subsequent neurologica l compromise, dural puncture, headaches, spinal cord and/or nerve damage, potential injection into the vertebral artery at that level and permanent ischemic damage, side effects of steroid medication, and poor results regarding pain control. Patient understands and wished to proceed. Under sterile prep and drape patient was placed in prone position using C-arm fluoroscopic guidance to identify the L5-S1 distribution oblique and slightly cephalad angled C arm. The left L5-S1 target was identified and using lidocaine for anesthetizing the skin 22-gauge Sebastien pencil point needle was then used to enter the skin and into the subcutaneous tissues using direct C-arm fluoroscopic guidance to guide the needle into the transforaminal aspect of the left L5-S1 vertebrae this was confirmed with lateral views showing the needle tip in the superior aspect of the paravertebral region. Aspiration was noted to be negative, -1.5 cc of contrast was then injected with good spread both medially into the epidural space as well as laterally along the nerve root without uptake and without distribution and uptake on digital subtraction. At this time, a solution containing 2 cc of 0.25% bupivacaine and 80 mg of Depo- Medrol was then injected. Needle was withdrawn and sterile bandage was applied. Patient tolerated procedure well had no immediate complications THEODORE SORIANO MD Mar 18, 2021 12:15
== END | disposition home or self-care (01) ==
LOC: PNCL 11:32
PROVIDERS: ATTEND Anesthesiology
DX: M51.16 Intervertebral disc disorders with radiculopathy, lumbar region (principal); M47.26 Other spondylosis with radiculopathy, lumbar region; M96.1 Postlaminectomy syndrome, not elsewhere classified; M16.11 Unilateral primary osteoarthritis, right hip; Z79.899 Other long term (current) drug therapy; Z88.1 Allergy status to other antibiotic agents; Z88.8 Allergy status to other drugs, medicaments and biological substances
CPT/HCPCS: 64483; J1040; J3490; Q9965

== ENCOUNTER → 2021-04-29 | Outpatient (CLI) | payer MEDICARE ==
[~2021-04-29] MED LIST changes: -BUPIVACAINE MPF 0.25% 10 ML VIAL. ONE; -IOHEXOL 180 MG/ML 10 ML VIAL. ONE; -methylPREDNISolone ACETATE 80 MG/ML VIAL. ONE
--- NOTE | 2021-04-29 17:07 | PDOC ---
Progress Note - Pain Clinic Date of Service: DOS: DATE: 04/29/21 TIME: 17:05 Diagnosis: Dx: Lumbar radiculopathy with lumbar degenerative disease lumbar spondylosis with post lumbar laminectomy syndrome History or Present Illness: HPI: Telemedicine visit with patient's identity verified with date of as well as full name, total time spent 11 minutes. 56-year-old female telemedicine visit today requesting morphine Contin refill patient is done very well with the medication has been a very stable regimen reports about a 70+ percent decrease in pain with medication without significant side effects. Patient reports still some constipation but is well controlled with [id number] remedies as well as MiraLAX and hydration. Patient has had appropriate K tracks portables appropriate analysis to date as well, we will refill patient's MS Contin 15 mg twice daily with instructions side effects aware of discussed. Patient will follow up in approximately 4 weeks as scheduled. Physical Exam: PE: THEODORE SORIANO MD Apr 29, 2021 17:07
--- NOTE | 2021-04-29 17:30 | NUR ---
Patient called requesting a refill on her medication. Name and verified,pharmacy verified, medications verified,patient denies constipation, no new medical problems verbalized next appointment ktracts checked call transferred to Dr Ramirez.
== END | disposition home or self-care (01) ==
LOC: PNCL 16:06
PROVIDERS: ATTEND Anesthesiology
DX: M51.16 Intervertebral disc disorders with radiculopathy, lumbar region (principal); M96.1 Postlaminectomy syndrome, not elsewhere classified; Z79.899 Other long term (current) drug therapy; Z88.1 Allergy status to other antibiotic agents; Z91.041 Radiographic dye allergy status; Z88.8 Allergy status to other drugs, medicaments and biological substances
CPT/HCPCS: 99212; G0463

== ENCOUNTER → 2021-05-26 | Outpatient (CLI) | payer MEDICARE ==
--- NOTE | 2021-05-26 14:09 | PDOC ---
Progress Note - Pain Clinic Date of Service: DOS: DATE: 05/26/21 TIME: 14:04 Diagnosis: Dx: Lumbar radiculopathy with lumbar degenerative disease lumbar spondylosis and lumbar postlaminectomy syndrome Right hip joint pain with osteoarthritis History or Present Illness: HPI: 56-year-old female returns for follow-up status post left L5-S1 transforaminal injection with about 75% improvement in the low back and left leg patient reports is still improved but she still has some pain rating the posterior gluteus posterior thigh posterior calf and foot worse at night but much better when she is up around her feet has been walking greater distances doing h ousehold activities work activities try with greater ease and comfort and sleeping better most nights patient reports her pain is a 6 on scale 10 is worse over the past week 3 on average 1 its least is a [address] aching sharp shooting can be tingling and burning in the back and the leg cramping radiating the lower extremity as well patient doing much better with activity however overall. Patient reports no bowel or bladder incontinence patient also taking MS Contin and hydromorphone hydromorphone using only very infrequently at night but not every night MS Contin 15 mg every 12 hours is doing very well without any significant side effects. Patient has had appropriate K tracks report as well as appropriate urinalyses to date as well. Physical Exam: VS: Blood pressure is 111/62 pulse 65 respirations 18 temperature 98.2 F height 5 feet 5 inches weight 184 pounds PE: PHYSICAL EXAMINATION: GENERAL: The patient is awake, alert, oriented, appropriate, very pleasant in demeanor HEENT: Shows normocephalic, atraumatic. Extraocular movements are intact and symmetrical. Oral cavity: Mucous membranes moist and pink. Dentition is intact. NECK: Shows anterior throat supple without palpable lymphadenopathy noted. Swallow reflex symmetrical. CHEST: Shows normal on inspection. Breath sounds are clear bilaterally, distant but no rales or rhonchi. HEART: Shows S1, S2 clear. No murmurs auscultated. ABDOMEN: Soft, nontender, nondistended. No palpable organomegaly is noted. BACK: Shows spine grossly in the midline. Normal-appearing cervical lordotic curvature. There is slightly increased thoracic kyphosis, some minor flattening of the lumbar lordotic curvature. Lumbar paraspinous muscles show symmetrical on inspection, on palpation shows some moderate tenderness diffusely throughout the upper, middle and lower distribution of the paraspinous muscles without specific trigger points, without radiation of pain. The patient has good rotational motion of the lumbar spine, both laterally as well as extension and flexion without significant difficulty. EXTREMITIES: Lower extremities show deep tendon reflexes 1+ in the patellar and tendo calcaneus tendons. Motor exam is 4 on a scale of 5 with right dorsifl exion, extension, quadriceps and hamstring flexion and 4/5 on the left. Peripheral pulses are 1+ posterior tibial. No peripheral edema is noted bilaterally. Lower extremities are warm and dry to touch, equal in color and appearance. SKIN: Shows warm and dry, good turgor. No edema. No sores, rashes or bruising throughout. Procedure: Procedure: Options were discussed with the patient. Patient chart was reviewed as her current medication regimen updated her review of systems updated today as well. We will refill patient's MS Contin 15 mg every 12 hours. Patient has had appropriate K tracks reports as well as appropriate urinalyses to date. We will make this a 30-day refill. Patient was given instructions well side effects beware of with the medication. Patient will follow up in approximate 30 days as scheduled. Medication Injected: Med Injected: None Condition at Discharge: Condition at Discharge: Condition at discharge is stable. THEODORE SORIANO MD May 26, 2021 14:09
== END | disposition home or self-care (01) ==
LOC: PNCL 13:41
PROVIDERS: ATTEND Anesthesiology
DX: M51.16 Intervertebral disc disorders with radiculopathy, lumbar region (principal); M47.26 Other spondylosis with radiculopathy, lumbar region; M96.1 Postlaminectomy syndrome, not elsewhere classified; M16.11 Unilateral primary osteoarthritis, right hip; Z79.84 Long term (current) use of oral hypoglycemic drugs; Z79.899 Other long term (current) drug therapy; Z88.1 Allergy status to other antibiotic agents; Z88.8 Allergy status to other drugs, medicaments and biological substances
CPT/HCPCS: 99212; G0463

== ENCOUNTER → 2021-06-17 | Outpatient (CLI) | payer MEDICARE ==
[~2021-06-17] MED LIST changes: +CHOL500016 PO; +DOCU100C28 PO; +SPIR50TA4 PO; +VITA1TAB19 PO
--- NOTE | 2021-06-17 13:03 | PDOC ---
Progress Note - Pain Clinic Date of Service: DOS: DATE: 06/17/21 TIME: 12:58 Diagnosis: Dx: Lumbar radiculopathy with lumbar degenerative disease lumbar and lumbosacral spondylosis with lumbar postlaminectomy syndrome History or Present Illness: HPI: 56-year-old female returns for follow-up status post medication management as well as interventional treatment patient had been doing very well with about 75% improvement with her medication regimen thus far but reports the pain in the low back and left lower extremity is becoming much more severe over the past week to 2 weeks patient reports she was doing some water aerobics and was jogging in place in the pool when she had significant pain that struck in the low back into the posterior gluteus posterior thigh posterior calf on the left into the foot and the top of the foot as well as the sole of the foot patient reports its been slightly better since she stopped the exercise about a week and a half ago but the pain is still significant in the low back and left leg patient reports that sharp alternating with dull in the back tight and shooting in the leg can be burning cramping and stabbing as well as radiating and severe with weightbearing. Patient reports no overt motor loss but significant fatigability left lower extremity. Patient has done well with her medication regimen of MS Contin and hydromorphone also Zanaflex for muscle relaxation but this pain is overwhelming and is becoming much more severe. Patient reports no bowel or bladder incontinence. Physical Exam: VS: Blood pressure is one 4/69 pulse 61 respirations 18 temperature 98.1 F weight is 185 pounds PE: PHYSICAL EXAMINATION: GENERAL: The patient is awake, alert, oriented, appropriate, very pleasant in demeanor HEENT: Shows normocephalic, atraumatic. Extraocular movements are intact and symmetrical. Oral cavity: Mucous membranes moist and pink. Dentition is intact. NECK: Shows anterior throat supple without palpable lymphadenopathy noted. Swallow reflex symmetrical. CHEST: Shows normal on inspection. Breath sounds are clear bilaterally, no rales or rhonchi. HEART: Shows S1, S2 clear. No murmurs auscultated. ABDOMEN: Soft, nontender, nondistended. No palpable organomegaly is noted. BACK: Shows spine grossly in the midline. Normal-appearing cervical lordotic curvature. There is mildly increased thoracic kyphosis, some flattening of the lumbar lordotic curvature with well-healed surgical scarring. Lumbar paraspinous muscles show symmetrical on inspection, on palpation shows some moderate tenderness diffusely throughout the upper, middle and lower distribution of the paraspinous muscles, but without specific trigger points, without radiation of pain. The patient has good rotational motion of the lumbar spine, both laterally as well as extension and flexion with moderate tenderness with extension but not forward flexion. No tenderness over the spinous processes, sacrum or sacroiliac regions.endo calcaneus tendons. Motor exam is 4 on a scale of 5 with right dorsiflexion, extension, quadriceps and hamstring flexion and 4/5 on the left. Peripheral pulses are 1+ posterior tibial. No peripheral edema is noted bilaterally. Lower extremities are warm and dry to touch, equal in color and appearance. SKIN: Shows warm and dry, good turgor. No edema. No sores, rashes or bruising throughout. Procedure: Procedure: Options were discussed with the patient. Patient's old chart was reviewed as her current medication regimen updated current review of systems updated today as well. We will proceed with a left L5-S1 transforaminal epidural steroid injection today with fluoroscopic guidance. Risks were discussed including but not limited to: Bleeding, infection, possibility of epidural hematoma and subsequent neurological compromise, dural puncture, headaches, spinal cord and/or nerve damage, side effects of steroid medication, potential injection into the vertebral artery at that level and permanent ischemic damage, and poor results regarding pain control. Patient understands and wished to proceed. Patient will return to the clinic in approximate 2 weeks for follow-up, was counseled as to return appointment, activity level, and side effect to be aware of. Medication Injected: Med Injected: Under sterile prep and drape patient was placed in prone position using C-arm fluoroscopic guidance to identify the L5-S1 distribution oblique and slightly cephalad angled C arm. The left L5-S1 target was identified and using lidocaine for anesthetizing the skin 22-gauge Sebastien pencil point needle was then used to enter the skin and into the subcutaneous tissues using direct C-arm fluoroscopic guidance to guide the needle into the transforaminal aspect of the left L5-S1 vertebrae this was confirmed with lateral views showing the needle tip in the superior aspect of the paravertebral region. Aspiration was noted to be negative, -1.5 cc of contrast was then injected with good spread both medially into the epidural space as well as laterally along the nerve root without uptake and without distribution and uptake on digital subtraction. At this time, a solution containing 2 cc of 0.25% bupivacaine and 80 mg of Depo- Medrol was then injected. Needle was withdrawn and sterile bandage was applied. Patient tolerated procedure well had no immediate complications Condition at Discharge: Condition at Discharge: Condition at discharge stable, patient tolerated the procedure well and had no complications. THEODORE SORIANO MD Jun 17, 2021 13:03
== END | disposition home or self-care (01) ==
LOC: PNCL 11:31
PROVIDERS: ATTEND Anesthesiology
DX: M51.16 Intervertebral disc disorders with radiculopathy, lumbar region (principal); M47.26 Other spondylosis with radiculopathy, lumbar region; M96.1 Postlaminectomy syndrome, not elsewhere classified; M48.07 Spinal stenosis, lumbosacral region; Z79.84 Long term (current) use of oral hypoglycemic drugs; Z79.899 Other long term (current) drug therapy; Z88.1 Allergy status to other antibiotic agents; Z88.8 Allergy status to other drugs, medicaments and biological substances
CPT/HCPCS: 64483

== ENCOUNTER → 2021-06-25 | Outpatient (CLI) | payer MEDICARE ==
--- NOTE | 2021-06-25 08:01 | NUR ---
Patient called requesting med refill.Verified patient ,allergies , pharmacy, medications and no new problems. Patient states she is improved since her last shot pain level a 3, denied constipation. ktract verified and is correct next appointment verified. Call transferred to Dr. Ramirez.
--- NOTE | 2021-06-25 08:04 | PDOC ---
Progress Note - Pain Clinic Date of Service: DOS: DATE: 06/25/21 TIME: 08:02 Diagnosis: Dx: Lumbar radiculopathy with lumbar degenerative disease lumbar spondylosis lumbar postlaminectomy syndrome Right hip joint pain with osteoarthritis History or Present Illness: HPI: Telemedicine visit today with patient's identity verified with full name as well as full date of total time spent, 12 minutes 56-year-old female via telemedicine visit today requesting refill of MS Contin 15 mg. Patient reports has been doing very well with this and has been on a very stable regimen for chronic lumbar radiculopathy and postlaminectomy syndrome. Patient reports no side effects with the medication and reports it is decreasing her pain by about a 75% level at most times. Patient reports increased ability to ambulate stand change positions and sitting for prolonged periods with greater ease and comfort. Patient reports it wakes her from sleep about once to twice a night but she can usually reposition and get back to sleep without difficulty. Patient reports doing much better after recent transforaminal injection with her left lower extremity improving by about 50% as well. Patient has had appropriate K tracks reporting as well as appropriate urinalyses to date. We will refill patient's medication MS Contin 15 mg 1 tablet twice daily with instructions and side effects aware of discussed. Patient will follow up in approximate 30 days as scheduled. Physical Exam: PE: THEODORE SORIANO MD Jun 25, 2021 08:04
== END | disposition home or self-care (01) ==
LOC: PNCL 07:59
PROVIDERS: ATTEND Anesthesiology
DX: M51.16 Intervertebral disc disorders with radiculopathy, lumbar region (principal); M47.896 Other spondylosis, lumbar region; M25.551 Pain in right hip; M16.11 Unilateral primary osteoarthritis, right hip; Z79.899 Other long term (current) drug therapy; Z98.890 Other specified postprocedural states; Z88.1 Allergy status to other antibiotic agents; Z88.8 Allergy status to other drugs, medicaments and biological substances
CPT/HCPCS: 99212; G0463

== ENCOUNTER → 2021-07-13 | Outpatient (CLI) | payer MEDICARE ==
--- NOTE | 2021-07-13 14:07 | PDOC ---
Progress Note - Pain Clinic Date of Service: DOS: DATE: 07/13/21 TIME: 14:04 Diagnosis: Dx: Lumbar radiculopathy with lumbar degenerative disease lumbar spondylosis with post laminectomy syndrome Right hip joint pain with osteoarthritis History or Present Illness: HPI: Telemedicine visit today with identity verified with full name as well as full date of , total time spent 11 minutes 56-year-old female via telemedicine conference today requesting refill of gabapentin 400 mg. Patient reports he is doing very well with and with 4 mg and 100 mg and needs refill of the 400 mg tablets. Patient reports he does very well with them and they do help decrease the pain significantly in her left lower extremity. Patient reports since her last injection her leg is doing much better and she is getting ready to travel over the next few days for short vacation via automobile. Patient reports no new side effects no bowel or bladder incontinence no dizziness headaches memory issues no dysphoria or euphoria as well. Patient reports the gabapentin does help her get through her day as well as help her with sleeping with the regimen she is taking currently. We will refill patient's gabapentin 400 mg 3 times daily with instructions side effects to be aware of again discussed. Patient is doing well with the remainder of her medications including controlled substances without significant side effects as well. Patient is also had appropriate K tracks reporting as well as appropriate urinalyses to date. Patient will follow up in approximately 2 weeks as scheduled. Physical Exam: PE: THEODORE SORIANO MD Jul 13, 2021 14:07
== END | disposition home or self-care (01) ==
LOC: PNCL 13:31
PROVIDERS: ATTEND Anesthesiology
DX: M51.16 Intervertebral disc disorders with radiculopathy, lumbar region (principal); M47.26 Other spondylosis with radiculopathy, lumbar region; M16.11 Unilateral primary osteoarthritis, right hip; Z79.899 Other long term (current) drug therapy; Z88.1 Allergy status to other antibiotic agents; Z88.8 Allergy status to other drugs, medicaments and biological substances
CPT/HCPCS: 99212; G0463

== ENCOUNTER → 2021-07-22 | Outpatient (CLI) | payer MEDICARE ==
--- NOTE | 2021-07-22 14:00 | PDOC ---
Progress Note - Pain Clinic Date of Service: DOS: DATE: 07/22/21 TIME: 13:56 Diagnosis: Dx: Lumbar radiculopathy with lumbar degenerative disease and lumbar spondylosis with lumbar postlaminectomy syndrome Right hip joint pain with osteoarthritis History or Present Illness: HPI: 56-year-old female returns for follow-up status post left L5-S1 transforaminal injection with about 70% improvement to the pain in the left lower extremity patient reports is still there but is very manageable with her medications she is taking morphine extended release as well as hydromorphone for breakthrough pain which she uses sparingly but is still significantly helpful when she does use a patient reports she recently returned from a trip to [place] and back in vehicle and tolerated very well patient reports her pain is a 7 on scale 10 is worse over the past week 3 on average 1 its least is a 3 today patient ports ach ing and tingling in the back burning in the leg on the left side without new motor or sensory deficits patient reports no bowel or bladder incontinence reports she is generally sleeping well at night, with occasional disruption from the pain but not most nights. Patient reports is increase her distance walking doing household activities work activities travel with greater ease and comfort as well. Patient reports no side effects with her medications has had appropriate K tracks report as well as appropriate urinalyses as well to date. Physical Exam: VS: Blood pressure is 130/71 pulse 67 respirations 18 temperature 98.2 F height 5 feet 5 inches weight 184 pounds. PE: PHYSICAL EXAMINATION: GENERAL: The patient is awake, alert, oriented, appropriate, very pleasant in demeanor HEENT: Shows normocephalic, atraumatic. Extraocular movements are intact and symmetrical. Oral cavity: Mucous membranes moist and pink. Dentition is intact. NECK: Shows anterior throat supple without palpable lymphadenopathy noted. Swallow reflex symmetrical. CHEST: Shows normal on inspection. Breath sounds are clear bilaterally, no rales or rhonchi auscultated. HEART: Shows S1, S2 clear. No murmurs auscultated. ABDOMEN: Soft, nontender, nondistended. No palpable organomegaly is noted. BACK: Shows spine grossly in the midline. Normal-appearing cervical lordotic curvature. There is mildly increased thoracic kyphosis, some moderate flattening of the lumbar lordotic curvature, with well-healed midline surgical scarring noted. Lumbar paraspinous muscles show symmetrical on inspection, on palpation shows some moderate tenderness diffusely throughout the upper, middle and lower distribution of the paraspinous muscles without specific trigger points, without radiation of pain. The patient has good rotational motion of the lumbar spine, both laterally as well as extension and flexion without significant difficulty. No tenderness over the spinous processes, sacrum or sacroiliac regions. EXTREMITIES: Lower extremities show deep tendon reflexes 1+ in the patellar and tendo calcaneus tendons. Motor exam is 4 on a scale of 5 with right dorsiflexion, extension, quadriceps and hamstring flexion and 4/5 on the left. Peripheral pulses are 1+ posterior tibial. No peripheral edema is noted bilaterally. Lower extremities are warm and dry. Patient has mild straight leg raise on the left at approximate 45 degrees but is decreased with knee flexion right side is negative. SKIN: Shows warm and dry, good turgor. No edema. No sores, rashes or bruising throughout. Procedure: Procedure: Options were discussed with patient. Patient's old chart was reviewed as her current medication regimen updated current review of systems updated today as well. Again, patient has had appropriate K tracks reporting as well as appropriate urinalyses to date. We will refill patient's MS Contin 15 mg 1 tablet every 12 hours as well as hydromorphone 4 mg 1 tablet every 6 hours as ne eded breakthrough. Patient given instructions well side effects beware of each of the medications. Patient will follow up in approximate 30 days as scheduled. Medication Injected: Med Injected: None Condition at Discharge: Condition at Discharge: Condition at discharge is stable. THEODORE SORIANO MD Jul 22, 2021 14:00
== END | disposition home or self-care (01) ==
LOC: PNCL 13:02
PROVIDERS: ATTEND Anesthesiology
DX: M51.16 Intervertebral disc disorders with radiculopathy, lumbar region (principal); M47.26 Other spondylosis with radiculopathy, lumbar region; M96.1 Postlaminectomy syndrome, not elsewhere classified; M16.11 Unilateral primary osteoarthritis, right hip; Z79.84 Long term (current) use of oral hypoglycemic drugs; Z79.899 Other long term (current) drug therapy; Z88.1 Allergy status to other antibiotic agents; Z88.8 Allergy status to other drugs, medicaments and biological substances; Z91.041 Radiographic dye allergy status
CPT/HCPCS: 99212; G0463

== ENCOUNTER → 2021-08-26 | Outpatient (CLI) | payer MEDICARE ==
--- NOTE | 2021-08-26 11:24 | NUR ---
Telehealth Visit: Pt called for routine follow up for medication refills. Confirmed name and . Specific request for refill of morphine. Pt denies any new health issues, allergies, constipation. C/O generalized pain 09/05. Confirmed preferred pharmacy. Follow up office visit scheduled for 09/20/21. Call transferred to Dr. Ramirez for focused evaluation and medication refills.
--- NOTE | 2021-08-26 12:34 | PDOC ---
Progress Note - Pain Clinic Date of Service: DOS: DATE: 08/26/21 TIME: 12:32 Diagnosis: Dx: Lumbar radiculopathy with lumbar degenerative disease lumbar spondylosis with lumbar postlaminectomy syndrome Right hip joint pain with osteoarthritis History or Present Illness: HPI: Telemedicine visit today with identification with full name as well as full date of , total time spent 12 minutes, telephone voice only. 56-year-old female via telemedicine visit today requesting refill of MS Contin. Patient reports she is doing very well and after her last visit with left transforaminal injection reports still significant improvement in the left leg she has been traveling with greater ease and comfort walking with greater ease to greater distances and sleeping better at night. Patient reports no side effects with her medication reports overall about a 70 to 75% improvement patient is taking hydromorphone only very sparingly does not need a refill on those at this time. Patient reports no new motor or sensory deficits no bowel or bladder incontinence. Patient has had appropriate K tracks report as well as appropriate urinalyses to date as well. We discussed options and will refill patient's MS Contin 15 mg 1 tablet every 12 hours patient was given instructions well side effects aware with the medications and will follow up in approximately 30 days as scheduled. Physical Exam: PE: \ THEODORE SORIANO MD Aug 26, 2021 12:34
== END | disposition home or self-care (01) ==
LOC: PNCL 10:54
PROVIDERS: ATTEND Anesthesiology
DX: M51.16 Intervertebral disc disorders with radiculopathy, lumbar region (principal); M47.26 Other spondylosis with radiculopathy, lumbar region; M96.1 Postlaminectomy syndrome, not elsewhere classified; M16.11 Unilateral primary osteoarthritis, right hip; Z79.899 Other long term (current) drug therapy; Z88.1 Allergy status to other antibiotic agents; Z91.041 Radiographic dye allergy status; Z88.8 Allergy status to other drugs, medicaments and biological substances
CPT/HCPCS: 99212; G0463

== ENCOUNTER → 2021-09-20 | Outpatient (CLI) | payer MEDICARE ==
--- NOTE | 2021-09-20 13:51 | PDOC ---
Progress Note - Pain Clinic Date of Service: DOS: DATE: 09/20/21 TIME: 13:48 Diagnosis: Dx: Lumbar radiculopathy with lumbar degenerative disease and lumbar spondylosis with lumbar postlaminectomy syndrome Right hip joint pain with osteoarthritis History or Present Illness: HPI: 56-year-old female returns for follow-up status post left L5-S1 transforaminal injection June 17, 2019 patient did very well about 75% improvement patient reports leg is beginning to be more painful in the left lower extremity posterior gluteus posterior thigh posterior calf and ankle to the feet with some cramping at night as well but is not quite to the point where she is ready to treat it specifically, patient is getting ready to travel to see her mother with a 5-hour drive each way and would like to wait if she gets back to see how her leg feels at that time. Patient reports still significant pain low back tingling burning cramping stabbing aching sharp dull alternating shooting in the leg can be radiating constant as well with weightbearing standing walking all patient reports he is sleeping better except for some leg cramps in the left leg patient rates her pain as 8 on scale 10 is worse over the past week 5 on average 3 to [place] is a 5 today. Patient doing very well with her MS Contin as well as hydromorphone only taking hydromorphone at night but not every night. Patient reports no side effects and has had appropriate K tracks reporting as well as appropriate urinalyses as well. Physical Exam: VS: Blood pressure is 105/64 pulse 56 respiration 20 temperature is 98.1 F weight is 183 pounds. PE: PHYSICAL EXAMINATION: GENERAL: The patient is awake, alert, oriented, appropriate, very pleasant in demeanor HEENT: Shows normocephalic, atraumatic. Extraocular movements are intact and symmetrical. Oral cavity: Mucous membranes moist and pink. Dentition is intact . NECK: Shows anterior throat supple without palpable lymphadenopathy noted. Swallow reflex symmetrical. CHEST: Shows normal on inspection. Breath sounds are clear bilaterally, distant but no rales rhonchi or wheezes auscultated. HEART: Shows S1, S2 clear. No murmurs auscultated. ABDOMEN: Soft, nontender, nondistended. No palpable organomegaly is noted. BACK: Shows spine grossly in the midline. Normal-appearing cervical lordotic curvature. There is slightly increased thoracic kyphosis, some flattening of the lumbar lordotic curvature with well-healed surgical scarring again noted. Lumbar paraspinous muscles show symmetrical on inspection, on palpation shows some moderate tenderness diffusely throughout the upper, middle and lower distribution of the paraspinous muscles, but without specific trigger points, without radiation of pain. The patient has good rotational motion of the lumbar spine, both laterally as well as extension and flexion without significant difficulty. No tenderness over the spinous processes, sacrum or sacroiliac regions. EXTREMITIES: Lower extremities show deep tendon reflexes 1+ in the patellar and tendo calcaneus tendons. Motor exam is 4 on a scale of 5 with right dorsiflexion, extension, quadriceps and hamstring flexion and 4/5 on the left. Peripheral pulses are 1+ posterior tibial. No peripheral edema is noted bilaterally. Lower extremities are warm and dry to touch, equal in color and appearance. SKIN: Shows warm and dry, good turgor. No edema. No sores, rashes or bruising throughout. Procedure: Procedure: Options were discussed with the patient. Patient's old chart was reviewed as her current medication regimen updated current review of systems updated today as well. We will refill patient's MS Contin with instructions side effects aware discussed. Patient has had appropriate protection 40 as well as appropria te urinalyses to date. Patient was given a 30-day prescription and will follow up after 30 days as scheduled. Medication Injected: Med Injected: None Condition at Discharge: Condition at Discharge: Condition at discharge is stable. THEODORE SORIANO MD Sep 20, 2021 13:51
== END | disposition home or self-care (01) ==
LOC: PNCL 12:57
PROVIDERS: ATTEND Anesthesiology
DX: M51.16 Intervertebral disc disorders with radiculopathy, lumbar region (principal); M47.26 Other spondylosis with radiculopathy, lumbar region; M96.1 Postlaminectomy syndrome, not elsewhere classified; M16.11 Unilateral primary osteoarthritis, right hip; Z79.84 Long term (current) use of oral hypoglycemic drugs; Z79.899 Other long term (current) drug therapy; Z88.1 Allergy status to other antibiotic agents; Z88.8 Allergy status to other drugs, medicaments and biological substances
CPT/HCPCS: 99212; G0463